=== PATIENT | male | born 1990 | race Caucasian/White ===

== ENCOUNTER → 2018-01-12 | Outpatient (REF) | payer OTHER ==
[2018-01-12 18:05] LABS: APPEARANCE, URINE CLEAR (CLEAR); BACTERIA, URINE AUTO NEGATIVE (NEGATIVE); BILIRUBIN, URINE AUTO NEGATIVE (NEGATIVE); BLOOD, URINE BLOOD 1+ (NEGATIVE); COLOR, URINE YELLOW (YELLOW); GLUCOSE, URINE (UA) AUTO NEGATIVE (NEGATIVE); KETONE, URINE AUTO NEGATIVE (NEGATIVE); LEUKOCYTE ESTERASE, URINE AUTO NEGATIVE (NEGATIVE); MUCUS, URINE SMALL (NEGATIVE); NITRITE, URINE AUTO NEGATIVE (NEGATIVE); PROTEIN, URINE AUTO NEGATIVE (NEGATIVE); RBC, URINE AUTO 6 /HPF (0-3); SPECIFIC GRAVITY URINE AUTO 1.015 (1.002-1.035); SQUAMOUS EPITHELIAL CELL UR AU 0 /HPF (0-6); UROBILINOGEN, URINE AUTO 0.2 mg/dL (0.0-2.0); WBC, URINE AUTO 2 /HPF (0-3)
== END ==
LOC: M SMT 17:15
DX: Z87.442 Personal history of urinary calculi (principal)

== ENCOUNTER → 2018-02-18 | Outpatient (REF) | payer OTHER ==
[2018-02-18 17:44] LABS: APPEARANCE, URINE CLEAR (CLEAR); BACTERIA, URINE AUTO NEGATIVE (NEGATIVE); BILIRUBIN, URINE AUTO NEGATIVE (NEGATIVE); BLOOD, URINE BLOOD NEGATIVE (NEGATIVE); COLOR, URINE YELLOW (YELLOW); GLUCOSE, URINE (UA) AUTO NEGATIVE (NEGATIVE); KETONE, URINE AUTO TRACE mg/dL (NEGATIVE); LEUKOCYTE ESTERASE, URINE AUTO NEGATIVE (NEGATIVE); MUCUS, URINE SMALL (NEGATIVE); NITRITE, URINE AUTO NEGATIVE (NEGATIVE); PROTEIN, URINE AUTO NEGATIVE (NEGATIVE); RBC, URINE AUTO 1 /HPF (0-3); SPECIFIC GRAVITY URINE AUTO 1.032 (1.002-1.035); SQUAMOUS EPITHELIAL CELL UR AU 0 /HPF (0-6); WBC, URINE AUTO 1 /HPF (0-3)
== END ==
LOC: M SMT 17:09
DX: N20.0 Calculus of kidney (principal)
CPT/HCPCS: 81001

== ENCOUNTER → 2018-08-24 | Outpatient (CLI) | payer OTHER | LOC: M PAIN 13:15 | DX: G89.29 Other chronic pain (principal); M25.511 Pain in right shoulder; M79.10 Myalgia, unspecified site; F41.9 Anxiety disorder, unspecified; K21.9 Gastro-esophageal reflux disease without esophagitis; K58.9 Irritable bowel syndrome, unspecified; Z87.891 Personal history of nicotine dependence; Z79.891 Long term (current) use of opiate analgesic; Z79.899 Other long term (current) drug therapy | CPT/HCPCS: G0463 ==

== ENCOUNTER → 2018-09-21 | Outpatient (CLI) | payer OTHER ==
[~2018-09-21] MED LIST: BUPIVACAINE HCL 0.25% 10 ML VIAL As Ordered; BUPIVACAINE HCL 0.25% 30 ML VIAL As Ordered; TRIAMCINOLONE ACETONIDE SUSP 40 MG/ML VIAL (J3301) As Ordered; oxyCODONE 5MG TAB As Ordered
== END ==
LOC: M PAIN 10:00
DX: G89.29 Other chronic pain (principal); M79.18 Myalgia, other site; M25.511 Pain in right shoulder; F41.9 Anxiety disorder, unspecified; Z79.899 Other long term (current) drug therapy; Z87.19 Personal history of other diseases of the digestive system; Z87.891 Personal history of nicotine dependence
CPT/HCPCS: J3301

== ENCOUNTER → 2018-10-20 | Outpatient (CLI) | payer OTHER ==
[~2018-10-20] MED LIST changes: -BUPIVACAINE HCL 0.25% 10 ML VIAL As Ordered; -BUPIVACAINE HCL 0.25% 30 ML VIAL As Ordered; +PERC5TAB12 PO; +SERT50TA PO; +TAMS0.4C2 PO; -TRIAMCINOLONE ACETONIDE SUSP 40 MG/ML VIAL (J3301) As Ordered; +ZOFR4TAB14 PO; -oxyCODONE 5MG TAB As Ordered
--- NOTE | 2018-11-12 00:41 | ECWPNPC ---
PATIENT NAME: MEDHAT BURRELL : 1990 GENDER: MALE VISIT DATE: 10/20/2018 DISCHARGE DATE: 10/20/18 1504 VISIT LOCKED DATE TIME: PHYSICIAN: CORRINE JACOBS RESOURCE: CORRINE JACOBS REASON FOR APPOINTMENT 1. POST PROC HISTORY OF PRESENT ILLNESS HISTORY OF PRESENT ILLNESS: HERE FOR POST PROCEDURE F/U.HAD TPI RIGHT SHOULDER 09-21-18.REPORTING >50% IMPROVEMENT SOME OF WHICH CONTINUES TODAY.RATING PAIN VAS 7/10.ATTENDING PT AND REPORTS IMPROVEMENT IN [facility] AND THEY WILL BE STARTING MUSCLE STRENGTHENING SOON.COMPLAINING OF NECK PAIN WITH RADIATION INTO RIGHT UPPER ARM.ALSO EXPERIENCING NUMBNESS IN HIS RIGHT FINGERS.THIS HAS BEEN AN ISSUE FOR SEVERAL MONTHS.DISCUSSED TREATMENT PLAN. PAIN THE PATIENT DESCRIBES THE PAIN... FALL RISK SCREENING: SCREENING :NO FALLS IN THE PAST YEAR CURRENT MEDICATIONS TAKING TRAMADOL HCL 50 MG TABLET 1 TABLET NEEDED ORALLY Q8H PRN MDD3 TAKING TYLENOL 325 MG TABLET 2TABLET NEEDED ORALLY EVERY 6 HRS NOT-TAKING ZOLOFT 50 MG TABLET 1 TABLET ORALLY ONCE A DAY, NOTES: NEEDS REFILL FROM PCP DISCONTINUED TRAMADOL HCL 50 MG TABLET 1 ORALLY Q8H PRN MDD3, NOTES: DUPLICATE DISCONTINUED FLOMAX 0.4 MG CAPSULE 1 CAPSULE ORALLY ONCE A DAY DISCONTINUED PERCOCET 5-325 MG TABLET 1 TABLET NEEDED ORALLY EVERY 6 HRS, MDD 4 DISCONTINUED FLOMAX 0.4 MG CAPSULE 1 CAPSULE 30 MINUTES AFTER THE SAME MEAL EACH DAY ORALLY ONCE A DAY DISCONTINUED ZOFRAN ODT 4 MG TABLET DISPERSIBLE 1 TABLET ON THE TONGUE AND ALLOW TO DISSOLVE ORALLY EVERY 8 HRS DISCONTINUED PERCOCET 5-325 MG TABLET 1 TABLET NEEDED ORALLY EVERY 6 HRS, MDD 4 DISCONTINUED POTASSIUM CITRATE-CITRIC ACID 1100-334 MG/5ML SOLUTION 15 ML AFTER MEALS ORALLY TID DISCONTINUED BUSPIRONE HCL 10 MG TABLET 1 TABLET ORALLY TWICE A DAY DISCONTINUED PROTONIX 40 MG TABLET DELAYED RELEASE 1 TABLET ORALLY ONCE A DAY MEDICATION LIST REVIEWED AND RECONCILED WITH THE PATIENT PAST MEDICAL HISTORY KIDNEY STONES HYDRONEPHROSIS ANXIETY PEPTIC REFLUX DISEASE IBS CHRONIC RIGHT SHOULDER PAIN ALLERGIES N.K.D.A. SURGICAL HISTORY RIGHT SHOULDER ARTHROPLASTY X2 2014/2016 RIGHT SHOULDER SURGERY 2012 FAMILY HISTORY FATHER: ALIVE MOTHER: ALIVE PATERNAL GRAND MOTHER: DIAGNOSED WITH CANCER 1 BROTHER(S) , 1 SISTER(S) - HEALTHY. 3 SON(S) - HEALTHY. DENIES FAMILY HISTORY OF UROLOGICAL DISEASES. SOCIAL HISTORY GENERAL: TOBACCO USE ARE YOU A:: FORMER SMOKER , HOW LONG HAS IT BEEN SINCE YOU LAST SMOKED?: 1-5 YEARS. ALCOHOL SCREENING POINTS: 3, INTERPRETATION: NEGATIVE. RECREATIONAL DRUG USE DENIES. CAFFEINE NONE. SEXUAL HX HAD SEX IN THE LAST 12 MONTHS (VAGINAL, ORAL, OR ANAL)?: YES, WITH: WOMEN ONLY, USE PROTECTION?: YES, HOW OFTEN?: ALL OF THE TIME, PREVENTION STRATEGIES DISCUSSED:: CONDOMS, HAVE YOU EVER HAD AN STD?: NO. YAZDANISM [id number] QUAKER LANGUAGE VIETNAMESE. EDUCATION COLLEGE DEGREE. 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 DIET: REGULAR. EXERCISE: WALKS. MARITAL STATUS: SINGLE. OTHERS AT HOME: OTHER RELATIVES. PAIN CLINIC PFS, CLERGY, PUBLIC HEALTH REFERRALS WAS THE PROVIDER NOTIFIED OF ANY PERTINENT INFO? N/A HAS THE PATIENT BEEN EDUCATED REGARDING HIS/HER PLAN OF CARE?YES HAS THE PATIENT BEEN EDUCATED REGARDING PAIN, THE RISK FOR PAIN, THE IMPORTANCE OF EFFECTIVE PAIN MANAGEMENT, AND THE PAIN ASSESSMENT PROCESS?YES ADVANCE DIRECTIVE ADVANCE DIRECTIVE DISCUSSED WITH PATIENT:YES 10/20/18 PT DOES NOT HAVE ANY ADVANCED DIRECTIVES AND HE DECLINES INFORMATION ON HCP AT THIS TIME. AD REVIEWED WITH PT 08/24/18 1334 BV10/20/18 1430 REVIEWED WITH PT. AD. HOSPITALIZATION/MAJOR DIAGNOSTIC PROCEDURE DENIES PAST HOSPITALIZATION REVIEW OF SYSTEMS REVIEWED BY: PROVIDER: CORRINE DAVALOS . CONSTITUTIONAL: ANY CHANGE IN YOUR MEDICAL CONDITION? NO . CHILLS NO . FEVER NO . INFECTION: DO YOU HAVE NEW INFECTIONS? NO . DO YOU HAVE HISTORY OF MRSA? NO . MUSCULOSKELETAL: ANY NEW PATTERNS OF PAIN OR NUMBNESS? NO . GASTROENTEROLOGY: ANY NEW CHANGE IN BOWEL CONTROL? NO . GENITOURINARY: ANY NEW CHANGE IN BLADDER CONTROL? NO . IS THERE A CHANCE YOU COULD BE ? NO . HEMATOLOGY/LYMPH: DO YOU TAKE ANY BLOOD THINNERS? (FOR EXAMPLE- COUMADIN, PLAVIX, AGGRENOX, PLATEL, PRADAXA, OR XARELTO) NO . WHEN WAS YOUR LAST DOSE? DATE: TIME: . NEUROLOGY: HAVE YOU FALLEN IN THE PAST 6 MONTHS? NO . ANY NEW EXTREMITY NUMBNESS OR WEAKNESS? NO . CARDIOLOGY: DO YOU HAVE A PACEMAKER OR DEFIBRILLATOR? NO . RESPIRATORY: HAVE YOU BEEN SICK IN THE PAST WEEK? NO . FEVER NO . FLU LIKE SYMPTOMS? NO . COUGH NO . INTEGUMENTARY: DO YOU HAVE ANY RASHES OR OPEN SORES? NO . ALLERGIC/IMMUNO: ARE YOU ALLERGIC TO SHELLFISH OR IV DYE? NO . ANY NEW ALLERGIES? NO . PSYCHIATRIC: DO YOU HAVE THOUGHTS OF HURTING YOURSELF OR SOMEONE ELSE? NO . ARE YOU ABUSED, NEGLECTED, OR IN AN UNSAFE ENVIRONMENT? NO . ENDOCRINOLOGY: ARE YOU DIABETIC? NO . OTHER: DO YOU NEED ANY PRESCRIPTIONS? NO . IF YES, PLEASE LIST: ____ . ANY NEW PROBLEMS WITH YOUR MEDICATIONS? NO . WHEN DID YOU LAST EAT? ____ . WHEN DID YOU LAST DRINK? ____ . WHAT DID YOU LAST DRINK? ____ . NAME OF PERSON DRIVING YOU HOME? ____ . DO YOU HAVE ANY OTHER QUESTIONS OR CONCERNS NO . VITAL SIGNS WT 168.2 LBS, HT 64.75", BMI 28.20 INDEX, BP 134/87 MM HG, HR 92 /MIN, RR 16 /MIN, TEMP 97.7 F, OXYGEN SAT % 98%, SAFE IN ENV? (Y/N) Y, NA INITIALS SC 14:18, REVIEWED BY: ANTONI. EXAMINATION GENERAL EXAMINATION: GENERAL APPEARANCE:ALERT,PLEASANT,NO ACUTE DISTRESS . PSYCHAFFECT NORMAL . NECK:TRACHEA MIDLINE. NO CERVICAL OR SUPRACLAVICULAR LYMPHADENOPATHY NOTED . LUNGS:LUNG SOUNDS ARE CLEAR . HEART:HEART RATE REGULAR . MUSCULOSKELETAL:ROJM RIGHT ARM LIMITED TO 90 DEGREES DUE TO INCREASED PAIN WITH ELEVATION ABOVE THIS POINT . CERVICALNEGATIVE FOR PAIN WITH PALPATION OF CERVICAL SPINE. NEGATIVE FOR PAIN WITH PALPATION OF CERVICAL PARASPINALS. NEGATIVE FOR PAIN WITH PALPATION OF TRAPEZIUS BILAT . NEUROLOGIC EXAM:NORMAL SENSATION LIGHT TOUCH BILAT.EXTREMITIES. SHOULDER / UPPER ARM: SHOULDER:RIGHT. INSPECTION:WELL HEALED SURGICAL SCARS.. PALPATION:NO TENDERNESS ON SUBDELTOID BURSA & BICIPITAL TENDON TRIGGER POINTS: OVER RIGHT TRAPEZIUS/RHOMBOID. ASSESSMENTS MYALGIA, OTHER SITE - M79.18 (PRIMARY) PAIN IN RIGHT SHOULDER - M25.511 (PRIMARY) CERVICALGIA - M54.2 TREATMENT MYALGIA, OTHER SITE BRANDIN SPINE CERVICAL [id number] NOTES: CONTINUE PTTPI RIGHT SHOULDER /UPPER BACK. PREVENTIVE MEDICINE PAIN CLINIC TEACHING: PROCEDURE TEACHING PT. DECLINED INFORAMTION ON TRIGGER POINT INJECTIONS STATING HE HAS HAD THEM AND IS FAMILIAR WITH IT. PRE-PROCEDURE INSTRUCTIONS REVIEWED WITH PT AND HE VERBALIZED UNDERSTANDING. AD. PROCEDURE CODES FA211 ESTABILISHED PATIENT [facility] FACILITY CHARGE DISPOSITION & COMMUNICATION FOLLOW UP POST (REASON: TPI RIGHT SHOULDER /UPPER BACK) ELECTRONICALLY SIGNED BY ANOOP STEINBERG ON 11/11/2018 AT 02:28 PM EST DISCLAIMER : THIS IS A VISIT SUMMARY EXTRACTED FROM THE [employer] CHART. IT IS NOT A COPY OF THE [employer] PROGRESS NOTE. AUGUSTINE
== END ==
LOC: M PAIN 14:15
PROVIDERS: ATTEND Nurse Practitioner Family
DX: M79.18 Myalgia, other site (principal); M25.511 Pain in right shoulder; M54.2 Cervicalgia; F41.9 Anxiety disorder, unspecified; Z79.899 Other long term (current) drug therapy; Z87.19 Personal history of other diseases of the digestive system; Z87.891 Personal history of nicotine dependence

== ENCOUNTER → 2018-10-20 | Outpatient (CLI) | payer OTHER | LOC: M RAD 16:12 | DX: M79.18 Myalgia, other site (principal) | CPT/HCPCS: 72052 ==

== ENCOUNTER → 2018-11-22 | Outpatient (CLI) | payer OTHER ==
[~2018-11-22] MED LIST changes: +BUPIVACAINE HCL 0.25% 10 ML VIAL As Ordered ONE; +BUPIVACAINE HCL 0.25% 30 ML VIAL As Ordered ONE; +TRIAMCINOLONE ACETONIDE SUSP 40 MG/ML VIAL (J3301) As Ordered ONE; +oxyCODONE 5MG TAB As Ordered ONE
--- NOTE | 2018-12-06 01:43 | ECWPNPC ---
PATIENT NAME: MEDHAT BURRELL : 1990 GENDER: MALE VISIT DATE: 11/22/2018 DISCHARGE DATE: 11/22/18 1003 VISIT LOCKED DATE TIME: PHYSICIAN: KEIKO RUIZ MD RESOURCE: KEIKO RUIZ MD REASON FOR APPOINTMENT 1. TPI HISTORY OF PRESENT ILLNESS HISTORY OF PRESENT ILLNESS: PAIN THE PATIENT DESCRIBES THE PAIN... FALL RISK SCREENING: SCREENING :NO FALLS IN THE PAST YEAR CURRENT MEDICATIONS TAKING TYLENOL 325 MG TABLET 2TABLET NEEDED ORALLY EVERY 6 HRS, NOTES: NONE RECENT TAKING TRAMADOL HCL 50 MG TABLET 1 TABLET NEEDED ORALLY Q8H PRN MDD3, NOTES: 11/21 1500 DISCONTINUED ZOLOFT 50 MG TABLET 1 TABLET ORALLY ONCE A DAY, NOTES: NEEDS REFILL FROM PCP MEDICATION LIST REVIEWED AND RECONCILED WITH THE PATIENT PAST MEDICAL HISTORY KIDNEY STONES HYDRONEPHROSIS ANXIETY PEPTIC REFLUX DISEASE IBS CHRONIC RIGHT SHOULDER PAIN ALLERGIES N.K.D.A. SURGICAL HISTORY RIGHT SHOULDER ARTHROPLASTY X2 RIGHT SHOULDER SURGERY 2011 FAMILY HISTORY FATHER: ALIVE MOTHER: ALIVE PATERNAL GRAND MOTHER: DIAGNOSED WITH CANCER 1 BROTHER(S) , 1 SISTER(S) - HEALTHY. 3 SON(S) - HEALTHY. DENIES FAMILY HISTORY OF UROLOGICAL DISEASES. SOCIAL HISTORY GENERAL: TOBACCO USE ARE YOU A:: FORMER SMOKER , HOW LONG HAS IT BEEN SINCE YOU LAST SMOKED?: 1-5 YEARS. ALCOHOL SCREENING POINTS: 3, INTERPRETATION: NEGATIVE. RECREATIONAL DRUG USE DENIES. CAFFEINE NONE. SEXUAL HX HAD SEX IN THE LAST 12 MONTHS (VAGINAL, ORAL, OR ANAL)?: YES, WITH: WOMEN ONLY, USE PROTECTION?: YES, HOW OFTEN?: ALL OF THE TIME, PREVENTION STRATEGIES DISCUSSED:: CONDOMS, HAVE YOU EVER HAD AN STD?: NO. ZOROASTRIANISM [id number] BUDDHIST LANGUAGE TURKMEN. EDUCATION COLLEGE DEGREE. 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 DIET: REGULAR. EXERCISE: WALKS. MARITAL STATUS: SINGLE. OTHERS AT HOME: OTHER RELATIVES. PAIN CLINIC PFS, CLERGY, PUBLIC HEALTH REFERRALS WAS THE PROVIDER NOTIFIED OF ANY PERTINENT INFO? N/A HAS THE PATIENT BEEN EDUCATED REGARDING HIS/HER PLAN OF CARE?YES HAS THE PATIENT BEEN EDUCATED REGARDING PAIN, THE RISK FOR PAIN, THE IMPORTANCE OF EFFECTIVE PAIN MANAGEMENT, AND THE PAIN ASSESSMENT PROCESS?YES ADVANCE DIRECTIVE ADVANCE DIRECTIVE DISCUSSED WITH PATIENT:YES 11/22/18 PT DOES NOT HAVE ANY ADVANCED DIRECTIVES AND HE DECLINES INFORMATION ON HCP AT THIS TIME. AD REVIEWED WITH PT 08/24/18 1334 BV10/20/18 1430 REVIEWED WITH PT. AD11/22/18 0905 REVIEWED WITH PT. AD. HOSPITALIZATION/MAJOR DIAGNOSTIC PROCEDURE DENIES PAST HOSPITALIZATION REVIEW OF SYSTEMS REVIEWED BY: PROVIDER: . CONSTITUTIONAL: ANY CHANGE IN YOUR MEDICAL CONDITION? NO . CHILLS NO . FEVER NO . INFECTION: DO YOU HAVE NEW INFECTIONS? NO . DO YOU HAVE HISTORY OF MRSA? NO . MUSCULOSKELETAL: ANY NEW PATTERNS OF PAIN OR NUMBNESS? NO . GASTROENTEROLOGY: ANY NEW CHANGE IN BOWEL CONTROL? NO . GENITOURINARY: ANY NEW CHANGE IN BLADDER CONTROL? NO . IS THERE A CHANCE YOU COULD BE ? NO . HEMATOLOGY/LYMPH: DO YOU TAKE ANY BLOOD THINNERS? (FOR EXAMPLE- COUMADIN, PLAVIX, AGGRENOX, PLATEL, PRADAXA, OR XARELTO) NO . WHEN WAS YOUR LAST DOSE? DATE: TIME: . NEUROLOGY: HAVE YOU FALLEN IN THE PAST 6 MONTHS? NO . ANY NEW EXTREMITY NUMBNESS OR WEAKNESS? NO . CARDIOLOGY: DO YOU HAVE A PACEMAKER OR DEFIBRILLATOR? NO . RESPIRATORY: HAVE YOU BEEN SICK IN THE PAST WEEK? NO . FEVER NO . FLU LIKE SYMPTOMS? NO . COUGH NO . INTEGUMENTARY: DO YOU HAVE ANY RASHES OR OPEN SORES? NO . ALLERGIC/IMMUNO: ARE YOU ALLERGIC TO SHELLFISH OR IV DYE? NO . ANY NEW ALLERGIES? NO . PSYCHIATRIC: DO YOU HAVE THOUGHTS OF HURTING YOURSELF OR SOMEONE ELSE? NO . ARE YOU ABUSED, NEGLECTED, OR IN AN UNSAFE ENVIRONMENT? NO . ENDOCRINOLOGY: ARE YOU DIABETIC? NO . OTHER: DO YOU NEED ANY PRESCRIPTIONS? NO . IF YES, PLEASE LIST: ____ . ANY NEW PROBLEMS WITH YOUR MEDICATIONS? NO . WHEN DID YOU LAST EAT? 11/21 1829 . WHEN DID YOU LAST DRINK? 11/21 1999 . WHAT DID YOU LAST DRINK? WATER . NAME OF PERSON DRIVING YOU HOME? JOSE JUAN HUBER . DO YOU HAVE ANY OTHER QUESTIONS OR CONCERNS NO . VITAL SIGNS WT 168.2 LBS, HT 64.75", BMI 28.20 INDEX, BP 124/72 MM HG, HR 72 /MIN, RR 18 /MIN, TEMP 97.4 F, OXYGEN SAT % 97, NA INITIALS MP 0848. ASSESSMENTS MYALGIA, OTHER SITE - M79.18 (PRIMARY) PROCEDURES PN TRIGGER POINT INJECTION WITH STEROIDS PRE PROCEDURE DIAGNOSIS 1. MYALGIA 2. PAIN AT RIGHT SHOULDER AREA POST PROCEDURE DIAGNOSIS 1. MYALGIA 2. PAIN AT RIGHT SHOULDER AREA PROCEDURE TRIGGER POINT INJECTION AT RIGHT SHOULDER AREA SURGEON DR. KEIKO RUIZ ENVIRONMENTAL TECH NONE ANESTHESIA LOCAL PRE PROCEDURE NOTE THE PATIENT HAS A HISTORY OF CHRONIC PAIN AT THE RIGHT SHOULDER AREA. I EVALUATE THE PATIENT AND REVIEWED THE CHART. THERE IS EVIDENCE OF BANDS OF TISSUE WITH RESTRICTION OF MOVEMENT AND PRESENCE OF TRIGGER POINT AT THE AFFECTED AREA. I WENT OVER THE RISKS, ALTERNATIVES, AND BENEFITS ASSOCIATED WITH THIS PROCEDURE. THE PATIENT WOULD LIKE TO PROCEED AND GIVE CONSENT TO PERFORMED THE PROCEDURE. THE PATIENT DENIES UNEXPLAINABLE WEIGHT LOSS, FEVER, CHILLS, OR NEW CHANGES IN URINARY OR BOWEL CONTROL DESCRIPTION OF PROCEDURE THE PATIENT WAS BROUGHT TO THE PROCEDURE ROOM AND PLACED IN THE SITTING POSITION. THE AREA WAS CLEANED WITH ALCOHOL. THE PROCEDURE WAS DONE USING ASEPTIC STERILE TECHNIQUE. I CHECKED LATERALITY AND THE LEVEL WHERE THE PROCEDURE WAS GOING TO BE PERFORMED WITH THE PATIENT AND THE SUPPORTING STAFF AT THE MOMENT OF THE TIME OUT IN THE PROCEDURE ROOM. USING A 25-GAUGE NEEDLE, TRIGGER POINTS WERE INJECTED AT THE RIGHT SHOULDER AREA WITH A TOTAL OF 40 ML OF BUPIVACAINE 0.25% AND KENALOG 40 MG. THERE WAS NO EVIDENCE OF BLOOD, PARESTHESIA OR CEREBROSPINAL FLUID DURING THE PROCEDURE. THE PATIENT WAS SENT TO THE RECOVERY ROOM. THE PATIENT WAS MOVING THE EXTREMITIES AND DOING WELL. THERE WAS NO COMPLICATION DURING THE PROCEDURE POST PROCEDURE NOTE THE PATIENT WILL BE SEEN IN A FOLLOW UP IN THE NEXT FEW WEEKS. INSTRUCTIONS WERE GIVEN, QUESTIONS WERE ANSWERED, AND THE PATIENT EXPRESSED UNDERSTANDING AND AGREES WITH THE PLAN. I, WILLOW SINGH, DOCUMENTED THE ABOVE INFORMATION ACTING A SCRIBE FOR DR. RUIZ. I HAVE REVIEWED THE ABOVE DOCUMENT, WRITTEN BY WILLOW PATEL AND I VERIFY THAT IT IS ACCURATE. PROCEDURE CODES 42653 INJ TRIGGER POINT 11/09 [facility] [place] COMMUNICATION FOLLOW UP 3 WEEKS ELECTRONICALLY SIGNED BY KEIKO RUIZ MD, MD ON 12/05/2018 AT 11:53 AM EST DISCLAIMER : THIS IS A VISIT SUMMARY EXTRACTED FROM THE [employer] CHART. IT IS NOT A COPY OF THE [employer] PROGRESS NOTE. AUGUSTINE
== END ==
LOC: M PAIN 08:30
PROVIDERS: ATTEND Anesthesiology
DX: M79.18 Myalgia, other site (principal); F41.9 Anxiety disorder, unspecified; K25.9 Gastric ulcer, unspecified as acute or chronic, without hemorrhage or perforation; K58.9 Irritable bowel syndrome, unspecified; M25.111 Fistula, right shoulder; Z87.442 Personal history of urinary calculi; Z87.891 Personal history of nicotine dependence; Z79.899 Other long term (current) drug therapy
CPT/HCPCS: 20552; J3301

== ENCOUNTER → 2018-12-29 | Outpatient (CLI) | payer OTHER ==
[~2018-12-29] MED LIST changes: -BUPIVACAINE HCL 0.25% 10 ML VIAL As Ordered ONE; -BUPIVACAINE HCL 0.25% 30 ML VIAL As Ordered ONE; -TRIAMCINOLONE ACETONIDE SUSP 40 MG/ML VIAL (J3301) As Ordered ONE; -oxyCODONE 5MG TAB As Ordered ONE
--- NOTE | 2019-01-14 23:37 | ECWPNPC ---
PATIENT NAME: MEDHAT BURRELL : 1990 GENDER: MALE VISIT DATE: 12/29/2018 DISCHARGE DATE: 12/29/18 0917 VISIT LOCKED DATE TIME: PHYSICIAN: CORRINE JACOBS RESOURCE: CORRINE JACOBS REASON FOR APPOINTMENT 1. POST TPI HISTORY OF PRESENT ILLNESS HISTORY OF PRESENT ILLNESS: HERE FOR POST PROCEDURE F/U.HAD TPI RIGHT SHOULDER 11-22-18.REPORTING >50% X1 WEEK.RATING PAIN VAS 7/10.ATTENDED PT RECENTLY AND DOING HOME STRETCHING. AND REPORTS IMPROVEMENT IN [facility].COMPLAINING OF NECK PAIN WITH RADIATION INTO RIGHT UPPER ARM.ALSO EXPERIENCING NUMBNESS IN HIS RIGHT FINGERS.HAS HAD STEROID INJECTIONS INTO SHOULDER JOINT ON SEVERAL OCCASIONS WHICH DIDNT HELP AND AGGREVATED PAINTHIS HAS BEEN AN ISSUE FOR SEVERAL MONTHS.DISCUSSED TREATMENT PLAN. PAIN THE PATIENT DESCRIBES THE PAIN... THE PATIENT DESCRIBES THE PAIN... FALL RISK SCREENING: SCREENING : NO FALLS IN THE PAST YEAR. CURRENT MEDICATIONS TAKING TYLENOL 325 MG TABLET 2TABLET NEEDED ORALLY EVERY 6 HRS TAKING TRAMADOL HCL 50 MG TABLET 1 TABLET NEEDED ORALLY Q8H PRN MDD3 MEDICATION LIST REVIEWED AND RECONCILED WITH THE PATIENT PAST MEDICAL HISTORY KIDNEY STONES HYDRONEPHROSIS ANXIETY PEPTIC REFLUX DISEASE IBS CHRONIC RIGHT SHOULDER PAIN ALLERGIES N.K.D.A. SURGICAL HISTORY RIGHT SHOULDER ARTHROPLASTY X2 2014/2015 RIGHT SHOULDER SURGERY 2012 FAMILY HISTORY FATHER: ALIVE MOTHER: ALIVE PATERNAL GRAND MOTHER: DIAGNOSED WITH CANCER 1 BROTHER(S) , 1 SISTER(S) - HEALTHY. 3 SON(S) - HEALTHY. DENIES FAMILY HISTORY OF UROLOGICAL DISEASES. SOCIAL HISTORY GENERAL: TOBACCO USE ARE YOU A:FORMER SMOKER HOW LONG HAS IT BEEN SINCE YOU LAST SMOKED?5-10 YEARS ALCOHOL SCREENING POINTS: 3, INTERPRETATION: NEGATIVE. RECREATIONAL DRUG USE DENIES. CAFFEINE NONE. SEXUAL HX HAD SEX IN THE LAST 12 MONTHS (VAGINAL, ORAL, OR ANAL)?: YES, WITH: WOMEN ONLY, USE PROTECTION?: YES, HOW OFTEN?: ALL OF THE TIME, PREVENTION STRATEGIES DISCUSSED:: CONDOMS, HAVE YOU EVER HAD AN STD?: NO. HOLINESS [id number] SYNAGOGUE LANGUAGE UZBEK. EDUCATION COLLEGE DEGREE. 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 DIET: REGULAR. EXERCISE: WALKS. MARITAL STATUS: SINGLE. OTHERS AT HOME: OTHER RELATIVES. PAIN CLINIC PFS, CLERGY, PUBLIC HEALTH REFERRALS WAS THE PROVIDER NOTIFIED OF ANY PERTINENT INFO? N/A HAS THE PATIENT BEEN EDUCATED REGARDING HIS/HER PLAN OF CARE?YES HAS THE PATIENT BEEN EDUCATED REGARDING PAIN, THE RISK FOR PAIN, THE IMPORTANCE OF EFFECTIVE PAIN MANAGEMENT, AND THE PAIN ASSESSMENT PROCESS?YES ADVANCE DIRECTIVE ADVANCE DIRECTIVE DISCUSSED WITH PATIENT:YES PT DOES NOT HAVE ANY ADVANCED DIRECTIVES AND HE DECLINES INFORMATION ON HCP AT THIS TIME. REVIEWED WITH PT 08/24/18 1334 BV10/20/18 1430 REVIEWED WITH PT. AD11/22/18 0905 REVIEWED WITH PT. AD. HOSPITALIZATION/MAJOR DIAGNOSTIC PROCEDURE NONE OTHER THAN SURGERIES LISTED ABOVE REVIEW OF SYSTEMS REVIEWED BY: PROVIDER: CORRINE DAVALOS . CONSTITUTIONAL: ANY CHANGE IN YOUR MEDICAL CONDITION? NO . CHILLS NO . FEVER NO . INFECTION: DO YOU HAVE NEW INFECTIONS? NO . DO YOU HAVE HISTORY OF MRSA? NO . MUSCULOSKELETAL: ANY NEW PATTERNS OF PAIN OR NUMBNESS? NO . GASTROENTEROLOGY: ANY NEW CHANGE IN BOWEL CONTROL? NO . GENITOURINARY: ANY NEW CHANGE IN BLADDER CONTROL? NO . IS THERE A CHANCE YOU COULD BE ? NO . HEMATOLOGY/LYMPH: DO YOU TAKE ANY BLOOD THINNERS? (FOR EXAMPLE- COUMADIN, PLAVIX, AGGRENOX, PLATEL, PRADAXA, OR XARELTO) NO . WHEN WAS YOUR LAST DOSE? DATE: TIME: . NEUROLOGY: HAVE YOU FALLEN IN THE PAST 12 MONTHS? NO . ANY NEW EXTREMITY NUMBNESS OR WEAKNESS? NO . CARDIOLOGY: DO YOU HAVE A PACEMAKER OR DEFIBRILLATOR? NO . RESPIRATORY: HAVE YOU BEEN SICK IN THE PAST WEEK? NO . FEVER NO . FLU LIKE SYMPTOMS? NO . COUGH NO . INTEGUMENTARY: DO YOU HAVE ANY RASHES OR OPEN SORES? NO . ALLERGIC/IMMUNO: ARE YOU ALLERGIC TO IV DYE? NO . ANY NEW ALLERGIES? NO . PSYCHIATRIC: DO YOU HAVE THOUGHTS OF HURTING YOURSELF OR SOMEONE ELSE? NO . ARE YOU ABUSED, NEGLECTED, OR IN AN UNSAFE ENVIRONMENT? NO . ENDOCRINOLOGY: ARE YOU DIABETIC? NO . OTHER: DO YOU NEED ANY PRESCRIPTIONS? NO . IF YES, PLEASE LIST: ____ . ANY NEW PROBLEMS WITH YOUR MEDICATIONS? NO . WHEN DID YOU LAST EAT? ____ . WHEN DID YOU LAST DRINK? ____ . WHAT DID YOU LAST DRINK? ____ . NAME OF PERSON DRIVING YOU HOME? ____ . DO YOU HAVE ANY OTHER QUESTIONS OR CONCERNS NO . VITAL SIGNS WT 156.4 LBS, HT 64.75", BMI 26.22 INDEX, BP 113/71 MM HG, HR 92 /MIN, RR 16 /MIN, TEMP 98.0 F, OXYGEN SAT % 96%, NA INITIALS SC 08:37, REVIEWED BY: EM. EXAMINATION GENERAL EXAMINATION: GENERAL APPEARANCE:ALERT,PLEASANT,NO ACUTE DISTRESS . PSYCHAFFECT NORMAL . NECK:TRACHEA MIDLINE. NO CERVICAL OR SUPRACLAVICULAR LYMPHADENOPATHY NOTED . LUNGS:LUNG SOUNDS ARE CLEAR . HEART:HEART RATE REGULAR . MUSCULOSKELETAL:ROJM RIGHT ARM LIMITED TO 90 DEGREES DUE TO INCREASED PAIN WITH ELEVATION ABOVE THIS POINT . CERVICALNEGATIVE FOR PAIN WITH PALPATION OF CERVICAL SPINE. NEGATIVE FOR PAIN WITH PALPATION OF CERVICAL PARASPINALS. NEGATIVE FOR PAIN WITH PALPATION OF TRAPEZIUS BILAT . NEUROLOGIC EXAM:NORMAL SENSATION LIGHT TOUCH BILAT.EXTREMITIES. SHOULDER / UPPER ARM: SHOULDER:RIGHT. INSPECTION:WELL HEALED SURGICAL SCARS.. PALPATION:NO TENDERNESS ON SUBDELTOID BURSA & BICIPITAL TENDON TRIGGER POINTS: OVER RIGHT TRAPEZIUS/RHOMBOID. ASSESSMENTS MYALGIA, OTHER SITE - M79.18 (PRIMARY) PAIN IN RIGHT SHOULDER - M25.511 (PRIMARY) CERVICALGIA - M54.2 TREATMENT OTHERS CONTINUE TRAMADOL HCL TABLET, 50 MG, 1 TABLET NEEDED, ORALLY, Q8H PRN MDD3 START TIZANIDINE HCL TABLET, 2 MG, 1 TABLET NEEDED, ORALLY, THREE TIMES A DAY, 30 DAY(S), 45, REFILLS 1 NOTES: TPI RIGHT SHOULDER12/29/18 TRIGGER POINT INFORMATION REVIEWED WITH PTTIZANTIDINE INFORMATION GIVEN TO PTMayelin ALFARO PREVENTIVE MEDICINE T. PROCEDURE CODES FA211 ESTABILISHED PATIENT [facility] CHARGE DISPOSITION & COMMUNICATION FOLLOW UP POST (REASON: TPI RIGHT SHOULDER) ELECTRONICALLY SIGNED BY ANOOP STEINBERG ON 01/13/2019 AT 12:21 PM EST DISCLAIMER : THIS IS A VISIT SUMMARY EXTRACTED FROM THE [employer] [facility] CHART. IT IS NOT A COPY OF THE [facility] PROGRESS NOTE. MTDD
== END ==
LOC: M PAIN 08:45
PROVIDERS: ATTEND Nurse Practitioner Family
DX: M79.18 Myalgia, other site (principal); M25.511 Pain in right shoulder; M54.2 Cervicalgia; F41.9 Anxiety disorder, unspecified; Z79.899 Other long term (current) drug therapy; Z87.11 Personal history of peptic ulcer disease; Z87.891 Personal history of nicotine dependence

== ENCOUNTER → 2019-01-19 | Outpatient (CLI) | payer OTHER ==
[~2019-01-19] MED LIST changes: +BUPIVACAINE HCL 0.25% 10 ML VIAL As Ordered ONE; +BUPIVACAINE HCL 0.25% 30 ML VIAL As Ordered ONE; +TRIAMCINOLONE ACETONIDE SUSP 40 MG/ML VIAL (J3301) As Ordered ONE; +oxyCODONE 5MG TAB As Ordered ONE
--- NOTE | 2019-02-01 00:34 | ECWPNPC ---
PATIENT NAME: MEDHAT BURRELL : 1990 GENDER: MALE VISIT DATE: 01/19/2019 DISCHARGE DATE: 01/19/19925 VISIT LOCKED DATE TIME: PHYSICIAN: KEIKO RUIZ MD RESOURCE: KEIKO RUIZ MD REASON FOR APPOINTMENT 1. TPI RIGHT SHOULDER HISTORY OF PRESENT ILLNESS HISTORY OF PRESENT ILLNESS: PAIN THE PATIENT DESCRIBES THE PAIN... FALL RISK SCREENING: SCREENING : NO FALLS IN THE PAST YEAR. CURRENT MEDICATIONS TAKING TYLENOL 325 MG TABLET 2TABLET NEEDED ORALLY EVERY 6 HRS, NOTES: 1 WEEK AGO TAKING TRAMADOL HCL 50 MG TABLET 1 TABLET NEEDED ORALLY Q8H PRN MDD3, NOTES: 3 DAYS TAKING TIZANIDINE HCL 2 MG TABLET 1 TABLET NEEDED ORALLY THREE TIMES A DAY, NOTES: 2 DAYS AGO MEDICATION LIST REVIEWED AND RECONCILED WITH THE PATIENT PAST MEDICAL HISTORY KIDNEY STONES HYDRONEPHROSIS ANXIETY PEPTIC REFLUX DISEASE IBS CHRONIC RIGHT SHOULDER PAIN ALLERGIES N.K.D.A. SURGICAL HISTORY RIGHT SHOULDER ARTHROPLASTY X2 RIGHT SHOULDER SURGERY 2011 FAMILY HISTORY FATHER: ALIVE MOTHER: ALIVE PATERNAL GRAND MOTHER: DIAGNOSED WITH CANCER 1 BROTHER(S) , 1 SISTER(S) - HEALTHY. 3 SON(S) - HEALTHY. DENIES FAMILY HISTORY OF UROLOGICAL DISEASES. SOCIAL HISTORY GENERAL: TOBACCO USE ARE YOU A:FORMER SMOKER HOW LONG HAS IT BEEN SINCE YOU LAST SMOKED?5-10 YEARS LATEX QUESTIONNAIRE LATEX ALLERGY : HAVE YOU EVER DEVELOPED ANY TYPE OF REACTION AFTER HANDLING LATEX PRODUCTS SUCH RUBBER GLOVES, CONDOMS, DIAPHRAGMS, BALLOONS, SOCKS, OR UNDERWEAR?NO LATEX ALLERGY : HAVE YOU EVER DEVELOPED ANY TYPE OF REACTION DURING OR AFTER DENTAL APPOINTMENT, VAGINAL/RECTAL EXAMINATION, SURGICAL PROCEDURE, OR ANY OTHER EXPOSURE?NO LATEX RISK : HAVE YOU EVER HAD ANY DIFFICULTY BREATHING OR HIVES AFTER EATING OR HANDLING ANY FRUITS, OR VEGETABLES; SUCH KIWI, BANANAS, STONE FRUITS, OR CHESTNUTSNO LATEX RISK : DO YOU HAVE A PREVIOUS PERSONAL HISTORY OF MORE THAN NINE SURGERIES, SPINA BIFIDA, OR REPEATED CATHERTIZATIONS? NO LATEX RISK : ARE YOU FREQUENTLY EXPOSED TO LATEX PRODUCTS IN YOUR OCCUPATION?NO DATE ASKED : 01/19/2019 ALCOHOL SCREENING POINTS: 3, INTERPRETATION: NEGATIVE. RECREATIONAL DRUG USE DENIES. CAFFEINE NONE. SEXUAL HX HAD SEX IN THE LAST 12 MONTHS (VAGINAL, ORAL, OR ANAL)?: YES, WITH: WOMEN ONLY, USE PROTECTION?: YES, HOW OFTEN?: ALL OF THE TIME, PREVENTION STRATEGIES DISCUSSED:: CONDOMS, HAVE YOU EVER HAD AN STD?: NO. MORAVIAN [id number] RELIGION LANGUAGE [place]. EDUCATION COLLEGE DEGREE. 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 DIET: REGULAR. EXERCISE: WALKS. MARITAL STATUS: SINGLE. OTHERS AT HOME: OTHER RELATIVES. PAIN CLINIC PFS, CLERGY, PUBLIC HEALTH REFERRALS WAS THE PROVIDER NOTIFIED OF ANY PERTINENT INFO? N/A HAS THE PATIENT BEEN EDUCATED REGARDING HIS/HER PLAN OF CARE?YES HAS THE PATIENT BEEN EDUCATED REGARDING PAIN, THE RISK FOR PAIN, THE IMPORTANCE OF EFFECTIVE PAIN MANAGEMENT, AND THE PAIN ASSESSMENT PROCESS?YES ADVANCE DIRECTIVE ADVANCE DIRECTIVE DISCUSSED WITH PATIENT:YES PT DOES NOT HAVE ANY ADVANCED DIRECTIVES AND HE DECLINES INFORMATION ON HCP AT THIS TIME. REVIEWED WITH PT 08/24/18 1334 BV10/20/18 1430 REVIEWED WITH PT. AD11/22/18 0905 REVIEWED WITH PT. AD. HOSPITALIZATION/MAJOR DIAGNOSTIC PROCEDURE NONE OTHER THAN SURGERIES LISTED ABOVE REVIEW OF SYSTEMS REVIEWED BY: PROVIDER: . CONSTITUTIONAL: ANY CHANGE IN YOUR MEDICAL CONDITION? NO . CHILLS NO . FEVER NO . INFECTION: DO YOU HAVE NEW INFECTIONS? NO . DO YOU HAVE HISTORY OF MRSA? NO . MUSCULOSKELETAL: ANY NEW PATTERNS OF PAIN OR NUMBNESS? NO . GASTROENTEROLOGY: ANY NEW CHANGE IN BOWEL CONTROL? NO . GENITOURINARY: ANY NEW CHANGE IN BLADDER CONTROL? NO . IS THERE A CHANCE YOU COULD BE ? NO . HEMATOLOGY/LYMPH: DO YOU TAKE ANY BLOOD THINNERS? (FOR EXAMPLE- COUMADIN, PLAVIX, AGGRENOX, PLATEL, PRADAXA, OR XARELTO) NO . WHEN WAS YOUR LAST DOSE? DATE: TIME: . NEUROLOGY: HAVE YOU FALLEN IN THE PAST 12 MONTHS? NO . ANY NEW EXTREMITY NUMBNESS OR WEAKNESS? NO . CARDIOLOGY: DO YOU HAVE A PACEMAKER OR DEFIBRILLATOR? NO . RESPIRATORY: HAVE YOU BEEN SICK IN THE PAST WEEK? NO . FEVER NO . FLU LIKE SYMPTOMS? NO . COUGH NO . INTEGUMENTARY: DO YOU HAVE ANY RASHES OR OPEN SORES? NO . ALLERGIC/IMMUNO: ARE YOU ALLERGIC TO IV DYE? NO . ANY NEW ALLERGIES? NO . PSYCHIATRIC: DO YOU HAVE THOUGHTS OF HURTING YOURSELF OR SOMEONE ELSE? NO . ARE YOU ABUSED, NEGLECTED, OR IN AN UNSAFE ENVIRONMENT? NO . ENDOCRINOLOGY: ARE YOU DIABETIC? NO . OTHER: DO YOU NEED ANY PRESCRIPTIONS? NO . IF YES, PLEASE LIST: ____ . ANY NEW PROBLEMS WITH YOUR MEDICATIONS? NO . WHEN DID YOU LAST EAT? 01/18 7PM . WHEN DID YOU LAST DRINK? 01/18 9PM . WHAT DID YOU LAST DRINK? WATER . NAME OF PERSON DRIVING YOU HOME? BETSEY BURRELL . DO YOU HAVE ANY OTHER QUESTIONS OR CONCERNS NO . VITAL SIGNS WT 158.6 LBS, HT 64.75", BMI 26.59 INDEX, BP 111/73 MM HG, HR 74 /MIN, RR 16 /MIN, TEMP 97.1 F, OXYGEN SAT % 98%, SAFE IN ENV? (Y/N) Y, NA INITIALS IL 08:51, REVIEWED BY: MARIJA. ASSESSMENTS MYALGIA, OTHER SITE - M79.18 (PRIMARY) PROCEDURES PN TRIGGER POINT INJECTION WITH STEROIDS PRE PROCEDURE DIAGNOSIS 1. MYALGIA 2. PAIN AT RIGHT SHOULDER AREA POST PROCEDURE DIAGNOSIS 1. MYALGIA 2. PAIN AT RIGHT SHOULDER AREA PROCEDURE TRIGGER POINT INJECTION AT RIGHT SHOULDER AREA SURGEON DR. KEIKO RUIZ BICYCLE MECHANIC NONE ANESTHESIA LOCAL PRE PROCEDURE NOTE THE PATIENT HAS A HISTORY OF CHRONIC PAIN AT THE RIGHT SHOULDER AREA. I EVALUATE THE PATIENT AND REVIEWED THE CHART. THERE IS EVIDENCE OF BANDS OF TISSUE WITH RESTRICTION OF MOVEMENT AND PRESENCE OF TRIGGER POINT AT THE AFFECTED AREA. I WENT OVER THE RISKS, ALTERNATIVES, AND BENEFITS ASSOCIATED WITH THIS PROCEDURE. THE PATIENT WOULD LIKE TO PROCEED AND GIVE CONSENT TO PERFORMED THE PROCEDURE. THE PATIENT DENIES UNEXPLAINABLE WEIGHT LOSS, FEVER, CHILLS, OR NEW CHANGES IN URINARY OR BOWEL CONTROL DESCRIPTION OF PROCEDURE THE PATIENT WAS BROUGHT TO THE PROCEDURE ROOM AND PLACED IN THE SITTING POSITION. THE AREA WAS CLEANED WITH ALCOHOL. THE PROCEDURE WAS DONE USING ASEPTIC STERILE TECHNIQUE. I CHECKED LATERALITY AND THE LEVEL WHERE THE PROCEDURE WAS GOING TO BE PERFORMED WITH THE PATIENT AND THE SUPPORTING STAFF AT THE MOMENT OF THE TIME OUT IN THE PROCEDURE ROOM. USING A 25-GAUGE NEEDLE, TRIGGER POINTS WERE INJECTED AT THE RIGHT SHOULDER AREA WITH A TOTAL OF 40 ML OF BUPIVACAINE 0.25% AND KENALOG 40 MG. THERE WAS NO EVIDENCE OF BLOOD, PARESTHESIA OR CEREBROSPINAL FLUID DURING THE PROCEDURE. THE PATIENT WAS SENT TO THE RECOVERY ROOM. THE PATIENT WAS MOVING THE EXTREMITIES AND DOING WELL. THERE WAS NO COMPLICATION DURING THE PROCEDURE POST PROCEDURE NOTE THE PATIENT WILL BE SEEN IN A FOLLOW UP IN THE NEXT FEW WEEKS. INSTRUCTIONS WERE GIVEN, QUESTIONS WERE ANSWERED, AND THE PATIENT EXPRESSED UNDERSTANDING AND AGREES WITH THE PLAN. I, WILLOW SINGH, DOCUMENTED THE ABOVE INFORMATION ACTING A SCRIBE FOR DR. RUIZ. I HAVE REVIEWED THE ABOVE DOCUMENT, WRITTEN BY WILLOW PATEL AND I VERIFY THAT IT IS ACCURATE. PROCEDURE CODES 51110 INJ TRIGGER POINT / MUSC DISPOSITION & COMMUNICATION FOLLOW UP 3 WEEKS ELECTRONICALLY SIGNED BY KEIKO RUIZ MD, MD ON 01/31/2019 AT 10:26 AM EDT DISCLAIMER : THIS IS A VISIT SUMMARY EXTRACTED FROM THE [employer] CHART. IT IS NOT A COPY OF THE [employer] PROGRESS NOTE. MTDHéctor
== END ==
LOC: M PAIN 08:30
PROVIDERS: ATTEND Anesthesiology
DX: M79.18 Myalgia, other site (principal); F41.9 Anxiety disorder, unspecified; K58.9 Irritable bowel syndrome, unspecified; M25.511 Pain in right shoulder; Z87.442 Personal history of urinary calculi; Z96.611 Presence of right artificial shoulder joint; Z79.891 Long term (current) use of opiate analgesic; Z79.899 Other long term (current) drug therapy; Z87.891 Personal history of nicotine dependence
CPT/HCPCS: 20552; J3301

== ENCOUNTER → 2019-02-20 | Outpatient (CLI) | payer OTHER ==
[~2019-02-20] MED LIST changes: -BUPIVACAINE HCL 0.25% 10 ML VIAL As Ordered ONE; -BUPIVACAINE HCL 0.25% 30 ML VIAL As Ordered ONE; +SERT-141 PO; -SERT50TA PO; -TRIAMCINOLONE ACETONIDE SUSP 40 MG/ML VIAL (J3301) As Ordered ONE; -oxyCODONE 5MG TAB As Ordered ONE
--- NOTE | 2019-03-06 01:01 | ECWPNPC ---
PATIENT NAME: MEDHAT BURRELL : 1990 GENDER: MALE VISIT DATE: 02/20/2019 DISCHARGE DATE: 02/20/19 1042 VISIT LOCKED DATE TIME: PHYSICIAN: CORRINE JACOBS RESOURCE: CORRINE JACOBS REASON FOR APPOINTMENT 1. POST TPI, RUNNING LATE HISTORY OF PRESENT ILLNESS HISTORY OF PRESENT ILLNESS: HERE FOR POST PROCEDURE F/U.HAD TPI RIGHT SHOULDER ON 01/19/19.REPORTING RESOLUTION OF PRESSURE PAIN/KNOT FEELING RIGHT POSTERIOR SHOULDER/SCALENE/TRAPEZIUS REGION.RATING PAIN VAS 7/10.REVIEWED CASE WITH DR RUIZ WHO CAME IN TO EVALUATE.DISCUSSED TREATMENT OPTIONS. PAIN THE PATIENT DESCRIBES THE PAIN... FALL RISK SCREENING: SCREENING :NO FALLS REPORTED IN THE LAST YEAR CURRENT MEDICATIONS TAKING TYLENOL 325 MG TABLET 2TABLET NEEDED ORALLY EVERY 6 HRS TAKING TIZANIDINE HCL 2 MG TABLET 1 TABLET NEEDED ORALLY THREE TIMES A DAY TAKING TRAMADOL HCL 50 MG TABLET 1 TABLET NEEDED ORALLY Q8H PRN MDD3 MEDICATION LIST REVIEWED AND RECONCILED WITH THE PATIENT PAST MEDICAL HISTORY KIDNEY STONES HYDRONEPHROSIS ANXIETY PEPTIC REFLUX DISEASE IBS CHRONIC RIGHT SHOULDER PAIN ALLERGIES N.K.D.A. SURGICAL HISTORY RIGHT SHOULDER ARTHROPLASTY X2 2014/2015 RIGHT SHOULDER SURGERY 2012 FAMILY HISTORY FATHER: ALIVE MOTHER: ALIVE PATERNAL GRAND MOTHER: DIAGNOSED WITH CANCER 1 BROTHER(S) , 1 SISTER(S) - HEALTHY. 3 SON(S) - HEALTHY. DENIES FAMILY HISTORY OF UROLOGICAL DISEASES. SOCIAL HISTORY GENERAL: TOBACCO USE ARE YOU A:FORMER SMOKER HOW LONG HAS IT BEEN SINCE YOU LAST SMOKED?5-10 YEARS LATEX QUESTIONNAIRE LATEX ALLERGY : HAVE YOU EVER DEVELOPED ANY TYPE OF REACTION AFTER HANDLING LATEX PRODUCTS SUCH RUBBER GLOVES, CONDOMS, DIAPHRAGMS, BALLOONS, SOCKS, OR UNDERWEAR?NO LATEX ALLERGY : HAVE YOU EVER DEVELOPED ANY TYPE OF REACTION DURING OR AFTER DENTAL APPOINTMENT, VAGINAL/RECTAL EXAMINATION, SURGICAL PROCEDURE, OR ANY OTHER EXPOSURE?NO LATEX RISK : HAVE YOU EVER HAD ANY DIFFICULTY BREATHING OR HIVES AFTER EATING OR HANDLING ANY FRUITS, OR VEGETABLES; SUCH KIWI, BANANAS, STONE FRUITS, OR CHESTNUTSNO LATEX RISK : DO YOU HAVE A PREVIOUS PERSONAL HISTORY OF MORE THAN NINE SURGERIES, SPINA BIFIDA, OR REPEATED CATHERTIZATIONS? NO LATEX RISK : ARE YOU FREQUENTLY EXPOSED TO LATEX PRODUCTS IN YOUR OCCUPATION?NO DATE ASKED : 02/20/2019 ALCOHOL SCREENING POINTS: 3, INTERPRETATION: NEGATIVE. RECREATIONAL DRUG USE DENIES. CAFFEINE NONE. SEXUAL HX HAD SEX IN THE LAST 12 MONTHS (VAGINAL, ORAL, OR ANAL)?: YES, WITH: WOMEN ONLY, USE PROTECTION?: YES, HOW OFTEN?: ALL OF THE TIME, PREVENTION STRATEGIES DISCUSSED:: CONDOMS, HAVE YOU EVER HAD AN STD?: NO. SCIENTOLOGIST [id number] ZOROASTRIAN LANGUAGE BULGARIAN. EDUCATION COLLEGE DEGREE. 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 DIET: REGULAR. EXERCISE: WALKS. MARITAL STATUS: SINGLE. OTHERS AT HOME: OTHER RELATIVES. PAIN CLINIC PFS, CLERGY, PUBLIC HEALTH REFERRALS WAS THE PROVIDER NOTIFIED OF ANY PERTINENT INFO?YES N/A HAS THE PATIENT BEEN EDUCATED REGARDING HIS/HER PLAN OF CARE?YES HAS THE PATIENT BEEN EDUCATED REGARDING PAIN, THE RISK FOR PAIN, THE IMPORTANCE OF EFFECTIVE PAIN MANAGEMENT, AND THE PAIN ASSESSMENT PROCESS?YES ADVANCE DIRECTIVE ADVANCE DIRECTIVE DISCUSSED WITH PATIENT:YES PT DOES NOT HAVE ANY ADVANCED DIRECTIVES AND HE DECLINES INFORMATION ON HCP AT THIS TIME. REVIEWED WITH PT 08/24/18 1334 BV10/20/18 1430 REVIEWED WITH PT. AD11/22/18 0905 REVIEWED WITH PT. AD. HOSPITALIZATION/MAJOR DIAGNOSTIC PROCEDURE NONE OTHER THAN SURGERIES LISTED ABOVE REVIEW OF SYSTEMS REVIEWED BY: PROVIDER: CORRINE DAVALOS . CONSTITUTIONAL: ANY CHANGE IN YOUR MEDICAL CONDITION? NO . CHILLS NO . FEVER NO . INFECTION: DO YOU HAVE NEW INFECTIONS? NO . DO YOU HAVE HISTORY OF MRSA? NO . MUSCULOSKELETAL: ANY NEW PATTERNS OF PAIN OR NUMBNESS? NO . GASTROENTEROLOGY: ANY NEW CHANGE IN BOWEL CONTROL? NO . GENITOURINARY: ANY NEW CHANGE IN BLADDER CONTROL? NO . IS THERE A CHANCE YOU COULD BE ? NO . HEMATOLOGY/LYMPH: DO YOU TAKE ANY BLOOD THINNERS? (FOR EXAMPLE- COUMADIN, PLAVIX, AGGRENOX, PLATEL, PRADAXA, OR XARELTO) NO . WHEN WAS YOUR LAST DOSE? DATE: TIME: . NEUROLOGY: HAVE YOU FALLEN IN THE PAST 12 MONTHS? NO . ANY NEW EXTREMITY NUMBNESS OR WEAKNESS? NO . CARDIOLOGY: DO YOU HAVE A PACEMAKER OR DEFIBRILLATOR? NO . RESPIRATORY: HAVE YOU BEEN SICK IN THE PAST WEEK? NO . FEVER NO . FLU LIKE SYMPTOMS? NO . COUGH NO . INTEGUMENTARY: DO YOU HAVE ANY RASHES OR OPEN SORES? NO . ALLERGIC/IMMUNO: ARE YOU ALLERGIC TO IV DYE? NO . ANY NEW ALLERGIES? NO . PSYCHIATRIC: DO YOU HAVE THOUGHTS OF HURTING YOURSELF OR SOMEONE ELSE? NO . ARE YOU ABUSED, NEGLECTED, OR IN AN UNSAFE ENVIRONMENT? NO . ENDOCRINOLOGY: ARE YOU DIABETIC? NO . OTHER: DO YOU NEED ANY PRESCRIPTIONS? NO . IF YES, PLEASE LIST: ____ . ANY NEW PROBLEMS WITH YOUR MEDICATIONS? NO . WHEN DID YOU LAST EAT? ____ . WHEN DID YOU LAST DRINK? ____ . WHAT DID YOU LAST DRINK? ____ . NAME OF PERSON DRIVING YOU HOME? ____ . DO YOU HAVE ANY OTHER QUESTIONS OR CONCERNS TPI IN RIGHT SHOULDER, EFFECTIVE FOR 2 WEEKS . VITAL SIGNS WT 159.4 LBS, HT 64.75", BMI 26.73 INDEX, BP 128/86 MM HG, HR 77 /MIN, RR 16 /MIN, TEMP 98.0 F, OXYGEN SAT % 97%, SAFE IN ENV? (Y/N) Y, NA INITIALS AW 1006, REVIEWED BY: MARIJA. EXAMINATION SHOULDER / UPPER ARM: SHOULDER: RIGHT. INSPECTION: WELL HEALED SURGICAL SCARS.. PALPATION: NO TENDERNESS ON SUBDELTOID BURSA & BICIPITAL TENDON TRIGGER POINTS: OVER RIGHT TRAPEZIUS/RHOMBOID. GENERAL EXAMINATION: GENERAL APPEARANCE:AWAKE,ALERT ,PLEAASANT . PSYCHAFFECT NORMAL . LUNGS:LUNG LEMUS ARE CLEAR TO AUSCULTATION BILATERALLY. GOOD MOVEMENT OF AIR . HEART:S1, S2 IN A REGULAR RATE AND RHYTHM. NO SIGNIFICANT MURMURS, RUBS OR GALLOPS NOTED . ASSESSMENTS PAIN IN RIGHT SHOULDER - M25.511 (PRIMARY) MYALGIA, OTHER SITE - M79.18 OTHER CHRONIC PAIN - G89.29 TREATMENT PAIN IN RIGHT SHOULDER CONTINUE TIZANIDINE HCL TABLET, 2 MG, 1 TABLET NEEDED, ORALLY, THREE TIMES A DAY CONTINUE TRAMADOL HCL TABLET, 50 MG, 1 TABLET NEEDED, ORALLY, Q8H PRN MDD3 NOTES: REFER TO [facility] TENS UNIT RIGHT SHOULDER PAIN. [facility] RE[facility]ON:PERSISTENT RIGHT DELTOID PAIN /SHORT TERM IMPROVEMENT TPI/S/P MULTIPLE RIGHT SHOULDER SURGERIES PROCEDURE CODES FA211 ESTABILISHED PATIENT [facility] CHARGE DISPOSITION & COMMUNICATION FOLLOW UP 2 MONTHS (REASON: REFER TO GOPI FERRARO TENS UNIT RIGHT SHOULDER PAIN) ELECTRONICALLY SIGNED BY ANOOP STEINBERG ON 03/05/2019 AT 07:01 PM EDT DISCLAIMER : THIS IS A VISIT SUMMARY EXTRACTED FROM THE [employer] CHART. IT IS NOT A COPY OF THE [employer] PROGRESS NOTE. AUGUSTINE
== END ==
LOC: M PAIN 09:30
PROVIDERS: ATTEND Nurse Practitioner Family
DX: M25.511 Pain in right shoulder (principal); M79.18 Myalgia, other site; G89.29 Other chronic pain; Z86.59 Personal history of other mental and behavioral disorders; Z87.891 Personal history of nicotine dependence; Z79.899 Other long term (current) drug therapy

== ENCOUNTER → 2019-02-24 | Outpatient (CLI) | payer OTHER ==
--- NOTE | 2019-02-24 10:18 | REP ---
KUB: Single view: History: Kidney stone. Comparison study: April 23, 2016. Findings: A normal bowel gas pattern is seen. There is a 4 mm calcific opacity projecting over the lower pole of the left kidney similar to the prior study. CT exam from February 08, 2018 shows a lower pole calculus on the left. Flank stripes and psoas margins are intact. No bony abnormality is seen. Impression: 4 mm calcific density projecting over the lower pole of the left kidney may be intrarenal. Electronically Signed by Claus Henderson MD 02/24/2019 03:10 P
== END ==
LOC: M SMT 08:58
PROVIDERS: ATTEND Nurse Practitioner Family
DX: N20.0 Calculus of kidney (principal)

== ENCOUNTER → 2019-05-29 | Outpatient (CLI) | payer OTHER ==
[~2019-05-29] MED LIST changes: +CIPR-249 PO; +KETO10TAB PO; +ZOFR4TAB16 PO
--- NOTE | 2019-05-31 01:03 | ECWPNPC ---
PATIENT NAME: MEDHAT BURRELL : 1990 GENDER: MALE VISIT DATE: 05/29/2019 DISCHARGE DATE: 05/29/19 1419 VISIT LOCKED DATE TIME: PHYSICIAN: JEFF HAYES RESOURCE: JEFF HAYES REASON FOR APPOINTMENT 1. RIGHT SHOULDER HISTORY OF PRESENT ILLNESS HISTORY OF PRESENT ILLNESS: PAIN THE PATIENT DESCRIBES THE PAIN... 28 YEAR OLD MALE IN FOR CHRONIC PAIN FOLLOW UP. HE ADMITS TO STOPPING HIS PAIN MEDICATION 2 WEEKS AGO HE DID NOT FEEL THEY WERE HELPING. HE IS CURRENTLY SEEING ORTHO AND AWAITING AN EMG AND MRI. HE CURRENTLY RATES HIS PAIN AT A 6/10. FALL RISK SCREENING: SCREENING :NO FALLS REPORTED IN THE LAST YEAR CURRENT MEDICATIONS TAKING MELATONIN 3 MG TABLET 1 TABLET AT BEDTIME NEEDED WITH FOOD ORALLY ONCE A DAY NOT-TAKING TYLENOL 325 MG TABLET 2TABLET NEEDED ORALLY EVERY 6 HRS NOT-TAKING TRAMADOL HCL 50 MG TABLET 1 TABLET NEEDED ORALLY Q8H PRN MDD3 NOT-TAKING TIZANIDINE HCL 2 MG TABLET 1 TABLET NEEDED ORALLY THREE TIMES A DAY MDD3 MEDICATION LIST REVIEWED AND RECONCILED WITH THE PATIENT PAST MEDICAL HISTORY KIDNEY STONES HYDRONEPHROSIS ANXIETY PEPTIC REFLUX DISEASE IBS CHRONIC RIGHT SHOULDER PAIN ALLERGIES N.K.D.A. SURGICAL HISTORY RIGHT SHOULDER ARTHROPLASTY X2 2014/2015 RIGHT SHOULDER SURGERY 2012 FAMILY HISTORY FATHER: ALIVE MOTHER: ALIVE SIBLINGS: ALIVE PATERNAL GRAND MOTHER: DIAGNOSED WITH CANCER 1 BROTHER(S) , 1 SISTER(S) - HEALTHY. 3 SON(S) - HEALTHY. DENIES FAMILY HISTORY OF UROLOGICAL DISEASES. SOCIAL HISTORY GENERAL: TOBACCO USE ARE YOU A:FORMER SMOKER HOW LONG HAS IT BEEN SINCE YOU LAST SMOKED?5-10 YEARS OTHERS AT HOME: OTHER RELATIVES. EDUCATION COLLEGE DEGREE. DIET: REGULAR. LANGUAGE GERMAN. DOMESTIC VIOLENCE DO YOU FEEL SAFE IN YOUR ENVIRONMENT?YES RECREATIONAL DRUG USE DRUG USE?NO EXERCISE: WALKS. LEARNING BARRIERS / SPECIAL NEEDS BARRIERS TO LEARNING?NO HEARING IMPAIRED?NO VISION IMPAIRED?YES :CORRECTIVE LENSES COGNITIVELY IMPAIRED?NO READINESS TO LEARN?YES LEARNING PREFERENCES?NO LEARNING CAPABILITIES PRESENT?YES EMOTIONAL BARRIERS?NO SPECIAL DEVICES?NO WEAPONS OFFICER NEEDED?NO PAIN CLINIC PFS, CLERGY, PUBLIC HEALTH REFERRALS WAS THE PROVIDER NOTIFIED OF ANY PERTINENT INFO?YES N/A HAS THE PATIENT BEEN EDUCATED REGARDING HIS/HER PLAN OF CARE?YES HAS THE PATIENT BEEN EDUCATED REGARDING PAIN, THE RISK FOR PAIN, THE IMPORTANCE OF EFFECTIVE PAIN MANAGEMENT, AND THE PAIN ASSESSMENT PROCESS?YES LATEX QUESTIONNAIRE LATEX ALLERGY : HAVE YOU EVER DEVELOPED ANY TYPE OF REACTION AFTER HANDLING LATEX PRODUCTS SUCH RUBBER GLOVES, CONDOMS, DIAPHRAGMS, BALLOONS, SOCKS, OR UNDERWEAR?NO LATEX ALLERGY : HAVE YOU EVER DEVELOPED ANY TYPE OF REACTION DURING OR AFTER DENTAL APPOINTMENT, VAGINAL/RECTAL EXAMINATION, SURGICAL PROCEDURE, OR ANY OTHER EXPOSURE?NO LATEX RISK : HAVE YOU EVER HAD ANY DIFFICULTY BREATHING OR HIVES AFTER EATING OR HANDLING ANY FRUITS, OR VEGETABLES; SUCH KIWI, BANANAS, STONE FRUITS, OR CHESTNUTSNO LATEX RISK : DO YOU HAVE A PREVIOUS PERSONAL HISTORY OF MORE THAN NINE SURGERIES, SPINA BIFIDA, OR REPEATED CATHERIZATIONS? NO LATEX RISK : ARE YOU FREQUENTLY EXPOSED TO LATEX PRODUCTS IN YOUR OCCUPATION?NO DATE ASKED : 02/20/2019 CAFFEINE NONE. ADVANCE DIRECTIVE ADVANCE DIRECTIVE DISCUSSED WITH PATIENT:YES PT DOES NOT HAVE ANY ADVANCED DIRECTIVES AND HE DECLINES INFORMATION ON HCP AT THIS TIME. ORTHODOX [id number] RELIGIOUS MARITAL STATUS: SINGLE. ALCOHOL SCREENING POINTS: 3, INTERPRETATION: NEGATIVE. 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 SEXUAL HX HAD SEX IN THE LAST 12 MONTHS (VAGINAL, ORAL, OR ANAL)?: YES, WITH: WOMEN ONLY, USE PROTECTION?: YES, HOW OFTEN?: ALL OF THE TIME, PREVENTION STRATEGIES DISCUSSED:: CONDOMS, HAVE YOU EVER HAD AN STD?: NO. REVIEWED WITH PT 08/24/18 1334 BV10/20/18 1430 REVIEWED WITH PT. AD11/22/18 0905 REVIEWED WITH PT. MANNY WITH PATIENT 05/29/19 1350 JS. HOSPITALIZATION/MAJOR DIAGNOSTIC PROCEDURE NONE OTHER THAN SURGERIES LISTED ABOVE REVIEW OF SYSTEMS REVIEWED BY: PROVIDER: ELIANA GALVIN . CONSTITUTIONAL: ANY CHANGE IN YOUR MEDICAL CONDITION? NO . CHILLS NO . FEVER NO . INFECTION: DO YOU HAVE NEW INFECTIONS? NO . DO YOU HAVE HISTORY OF MRSA? NO . MUSCULOSKELETAL: ANY NEW PATTERNS OF PAIN OR NUMBNESS? NO . GASTROENTEROLOGY: ANY NEW CHANGE IN BOWEL CONTROL? NO . GENITOURINARY: ANY NEW CHANGE IN BLADDER CONTROL? NO . IS THERE A CHANCE YOU COULD BE ? NO . HEMATOLOGY/LYMPH: DO YOU TAKE ANY BLOOD THINNERS? (FOR EXAMPLE- COUMADIN, PLAVIX, AGGRENOX, PLATEL, PRADAXA, OR XARELTO) NO . WHEN WAS YOUR LAST DOSE? DATE: TIME: . NEUROLOGY: HAVE YOU FALLEN IN THE PAST 12 MONTHS? NO . ANY NEW EXTREMITY NUMBNESS OR WEAKNESS? NO . CARDIOLOGY: DO YOU HAVE A PACEMAKER OR DEFIBRILLATOR? NO . RESPIRATORY: HAVE YOU BEEN SICK IN THE PAST WEEK? NO . FEVER NO . FLU LIKE SYMPTOMS? NO . COUGH NO . INTEGUMENTARY: DO YOU HAVE ANY RASHES OR OPEN SORES? NO . ALLERGIC/IMMUNO: ARE YOU ALLERGIC TO IV DYE? NO . ANY NEW ALLERGIES? NO . PSYCHIATRIC: DO YOU HAVE THOUGHTS OF HURTING YOURSELF OR SOMEONE ELSE? NO . ARE YOU ABUSED, NEGLECTED, OR IN AN UNSAFE ENVIRONMENT? NO . ENDOCRINOLOGY: ARE YOU DIABETIC? NO . OTHER: DO YOU NEED ANY PRESCRIPTIONS? NO . IF YES, PLEASE LIST: ____ . ANY NEW PROBLEMS WITH YOUR MEDICATIONS? NO . WHEN DID YOU LAST EAT? ____ . WHEN DID YOU LAST DRINK? ____ . WHAT DID YOU LAST DRINK? ____ . NAME OF PERSON DRIVING YOU HOME? ____ . DO YOU HAVE ANY OTHER QUESTIONS OR CONCERNS YES, STATES HIS CURRENT MEDICATIONS WERE NOT WORKING - HE STOPPED TAKING THEM ABOUT 2 WEEKS AGO. ALSO STATES THE MEDICATIONS MADE IT HARD TO SLEEP - HE WOULD BE ABLE TO FALL ASLEEP OK BUT COULD NOT STAY ASLEEP . VITAL SIGNS WT 158.8 LBS, HT 64.75", BMI 26.63 INDEX, BP 133/77 MM HG, HR 76 /MIN, RR 16 /MIN, TEMP 97.5 F, OXYGEN SAT % 97%, SAFE IN ENV? (Y/N) YES, NA INITIALS AW 1346, REVIEWED BY: JACKY. EXAMINATION GENERAL EXAMINATION: GENERALNO ACUTE DISTRESS, WELL NOURISHED AND HYDRATED. PSYCHAPPROPRIATE MOOD AND AFFECT . LUNGS:CLEAR TO AUSCULTATION BILATERALLY, NO WHEEZES, RHONCHI, RALES. HEART:NO MURMURS, REGULAR RATE AND RHYTHM. ASSESSMENTS MYALGIA, OTHER SITE - M79.18 (PRIMARY) TREATMENT MYALGIA, OTHER SITE CLINICAL NOTES: 28 YEAR OLD MALE IN FOR CHRONIC PAIN FOLLOW UP. GIVEN PRESENTING SYMPTOMS AND RESULTS OF PHYSICAL EXAMINATION RECOMMENDED AWAITING RESULTS OF ORTHO WORKUPS PRIOR TO TRIALING ANOTHER MEDICATION AND/OR A PROCEDURE. PATIENT HAS EXPRESSED UNDERSTANDING OF AND WAS IN AGREEMENT WITH TX PLAN. GIVEN TIME TO ASK QUESTIONS AND EXPRESS CONCERNS. . PROCEDURE CODES FA211 ESTABILISHED PATIENT [facility] CHARGE DISPOSITION & COMMUNICATION FOLLOW UP 4 WEEKS (REASON: CHRONIC PAIN ) ELECTRONICALLY SIGNED BY ANOOP GUADALUPE ON 05/30/2019 AT 10:24 AM EDT DISCLAIMER : THIS IS A VISIT SUMMARY EXTRACTED FROM THE [employer] CHART. IT IS NOT A COPY OF THE [employer] PROGRESS NOTE. AUGUSTINE
== END ==
LOC: M PAIN 13:45
PROVIDERS: ATTEND Family Medicine
DX: M79.18 Myalgia, other site (principal); F41.9 Anxiety disorder, unspecified; K21.9 Gastro-esophageal reflux disease without esophagitis; K58.9 Irritable bowel syndrome, unspecified; M25.511 Pain in right shoulder; Z87.891 Personal history of nicotine dependence; Z87.442 Personal history of urinary calculi; Z79.899 Other long term (current) drug therapy

== ENCOUNTER → 2019-06-16 | Outpatient (CLI) | payer OTHER ==
[~2019-06-16] MED LIST changes: +ANUC25SU PR; +CYMB60CA3 PO; +DICL50TAB PO; +DOXY100C37 PO; +OXYC5CAP56 PO; +TRAM50TA2 PO
--- NOTE | 2019-06-16 18:16 | REP ---
MRI RIGHT SHOULDER: TECHNIQUE: Axial T2 fat sat, gradient echo, sagittal oblique T2 fat sat, coronal oblique T1, T2 fat sat. COMPARISON: MRI 07/26/2014. 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 Rotator cuff tendons are intact with no tear. There are very mild hypertrophic changes at the acromioclavicular joint with a type 2 acromion. Biceps tendon is within the bicipital groove with no tenosynovitis. I do not see a Hill Sach's deformity. The deltoid muscle demonstrates no abnormal signal. The biceps labral complex appears intact. No new labral tears is seen. There is again truncation of the anterior labrum. There is blooming artifact from anchors in the anterior bony glenoid. This somewhat limits evaluation of adjacent structures at the glenohumeral joint. However there is mild to moderate spurring of the humeral head medially which appears to have slightly increased since the prior study in 2013. 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 There is new mild subchondral marrow edema in the anterior aspect of the humeral head at the anterior margin of the glenohumeral joint. There is a small joint effusion. No paralabral cyst is seen. IMPRESSION: No evidence of rotator cuff tear or new labral tear as discussed above. Evidence of prior Bankart repair. There appears to be slightly increased spurring of the medial humeral head and also of moderate chondromalacia of the humeral head and adjacent glenoid. There is new mild subchondral marrow edema in the anterior humeral head. Electronically Signed by Roberto Carlos Arce MD 06/19/2019 11:29 A
== END ==
LOC: M RAD 10:52
PROVIDERS: ATTEND Orthopaedic Surgery Sports Medicine
DX: M25.711 Osteophyte, right shoulder (principal)

== ENCOUNTER → 2019-07-13 | Outpatient (CLI) | payer OTHER ==
--- NOTE | 2019-07-18 01:29 | ECWPNPC ---
PATIENT NAME: MEDHAT BURRELL : 1990 GENDER: MALE VISIT DATE: 07/13/2019 DISCHARGE DATE: 07/13/19 1012 VISIT LOCKED DATE TIME: PHYSICIAN: JEFF HAYES RESOURCE: JEFF HAYES REASON FOR APPOINTMENT 1. CHRONIC PAIN HISTORY OF PRESENT ILLNESS HISTORY OF PRESENT ILLNESS: PAIN THE PATIENT DESCRIBES THE PAIN... 29-YEAR-OLD MALE IN FOR CHRONIC PAIN FOLLOW-UP. HE RATES HIS PAIN CURRENTLY AT A 5 OUT OF 10 AND DESCRIBES IT STABBING, SHARP, STABBING, SORE, AND TENDER. PATIENT ADMITS TO AN APPOINTMENT WITH DR. SIMON LAST EVENING FOR AN EMG STUDY. HE FURTHER ADMITS TO AN APPOINTMENT TODAY WITH DR. ARRIAGA IN ORTHOPEDICS. PATIENT STATES HE WILL HAVE RECORDS FROM THESE VISITS TRANSFERRED TO US. FALL RISK SCREENING: SCREENING :NO FALLS REPORTED IN THE LAST YEAR CURRENT MEDICATIONS TAKING MELATONIN 3 MG TABLET 1 TABLET AT BEDTIME NEEDED WITH FOOD ORALLY ONCE A DAY TAKING DULOXETINE HCL 30 MG CAPSULE DELAYED RELEASE PARTICLES 1 CAPSULE ORALLY BID NOT-TAKING TYLENOL 325 MG TABLET 2TABLET NEEDED ORALLY EVERY 6 HRS NOT-TAKING TRAMADOL HCL 50 MG TABLET 1 TABLET NEEDED ORALLY Q8H PRN MDD3 NOT-TAKING TIZANIDINE HCL 2 MG TABLET 1 TABLET NEEDED ORALLY THREE TIMES A DAY MDD3 MEDICATION LIST REVIEWED AND RECONCILED WITH THE PATIENT PAST MEDICAL HISTORY KIDNEY STONES HYDRONEPHROSIS ANXIETY/DEPRESSION PEPTIC REFLUX DISEASE IBS CHRONIC RIGHT SHOULDER PAIN ALLERGIES N.K.D.A. SURGICAL HISTORY RIGHT SHOULDER ARTHROPLASTY X2 2014/2015 RIGHT SHOULDER SURGERY 2012 FAMILY HISTORY FATHER: ALIVE MOTHER: ALIVE SIBLINGS: ALIVE PATERNAL GRAND MOTHER: DIAGNOSED WITH CANCER 1 BROTHER(S) , 1 SISTER(S) - HEALTHY. 3 SON(S) - HEALTHY. DENIES FAMILY HISTORY OF UROLOGICAL DISEASES. SOCIAL HISTORY GENERAL: TOBACCO USE ARE YOU A:FORMER SMOKER HOW LONG HAS IT BEEN SINCE YOU LAST SMOKED?5-10 YEARS OTHERS AT HOME: OTHER RELATIVES. EDUCATION COLLEGE DEGREE. DIET: REGULAR. LANGUAGE TURKMEN. DOMESTIC VIOLENCE DO YOU FEEL SAFE IN YOUR ENVIRONMENT?YES RECREATIONAL DRUG USE DRUG USE?NO EXERCISE: WALKS. LEARNING BARRIERS / SPECIAL NEEDS BARRIERS TO LEARNING?NO HEARING IMPAIRED?NO VISION IMPAIRED?YES :CORRECTIVE LENSES COGNITIVELY IMPAIRED?NO READINESS TO LEARN?YES LEARNING PREFERENCES?NO LEARNING CAPABILITIES PRESENT?YES EMOTIONAL BARRIERS?NO SPECIAL DEVICES?NO POLICE DETECTIVE NEEDED?NO PAIN CLINIC PFS, CLERGY, PUBLIC HEALTH REFERRALS WAS THE PROVIDER NOTIFIED OF ANY PERTINENT INFO?YES N/A HAS THE PATIENT BEEN EDUCATED REGARDING HIS/HER PLAN OF CARE?YES HAS THE PATIENT BEEN EDUCATED REGARDING PAIN, THE RISK FOR PAIN, THE IMPORTANCE OF EFFECTIVE PAIN MANAGEMENT, AND THE PAIN ASSESSMENT PROCESS?YES LATEX QUESTIONNAIRE LATEX ALLERGY : HAVE YOU EVER DEVELOPED ANY TYPE OF REACTION AFTER HANDLING LATEX PRODUCTS SUCH RUBBER GLOVES, CONDOMS, DIAPHRAGMS, BALLOONS, SOCKS, OR UNDERWEAR?NO LATEX ALLERGY : HAVE YOU EVER DEVELOPED ANY TYPE OF REACTION DURING OR AFTER DENTAL APPOINTMENT, VAGINAL/RECTAL EXAMINATION, SURGICAL PROCEDURE, OR ANY OTHER EXPOSURE?NO LATEX RISK : HAVE YOU EVER HAD ANY DIFFICULTY BREATHING OR HIVES AFTER EATING OR HANDLING ANY FRUITS, OR VEGETABLES; SUCH KIWI, BANANAS, STONE FRUITS, OR CHESTNUTSNO LATEX RISK : DO YOU HAVE A PREVIOUS PERSONAL HISTORY OF MORE THAN NINE SURGERIES, SPINA BIFIDA, OR REPEATED CATHERIZATIONS? NO LATEX RISK : ARE YOU FREQUENTLY EXPOSED TO LATEX PRODUCTS IN YOUR OCCUPATION?NO DATE ASKED : 02/20/2019 CAFFEINE NONE. ADVANCE DIRECTIVE ADVANCE DIRECTIVE DISCUSSED WITH PATIENT:YES PT DOES NOT HAVE ANY ADVANCED DIRECTIVES AND HE DECLINES INFORMATION ON HCP AT THIS TIME. QUAKER [id number] ADVENT[employer] MARITAL STATUS: SINGLE. ALCOHOL SCREENING POINTS: 3, INTERPRETATION: NEGATIVE. 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 SEXUAL HX HAD SEX IN THE LAST 12 MONTHS (VAGINAL, ORAL, OR ANAL)?: YES, WITH: WOMEN ONLY, USE PROTECTION?: YES, HOW OFTEN?: ALL OF THE TIME, PREVENTION STRATEGIES DISCUSSED:: CONDOMS, HAVE YOU EVER HAD AN STD?: NO. REVIEWED WITH PT 08/24/18 1334 BV10/20/18 1430 REVIEWED WITH PT. AD11/22/18 0905 REVIEWED WITH PT. ADREVIEWED WITH PATIENT 05/29/19 1350 JSREVIEWED WITH PATIENT 07/13/19 0939 NLJ. HOSPITALIZATION/MAJOR DIAGNOSTIC PROCEDURE NONE OTHER THAN SURGERIES LISTED ABOVE REVIEW OF SYSTEMS REVIEWED BY: PROVIDER: ELIANA GALVIN . CONSTITUTIONAL: ANY CHANGE IN YOUR MEDICAL CONDITION? YES- STATES HE HAS BEEN DIAGNOSED WITH DEPRESSION, STARTED ON DULOXETINE BY PCP . CHILLS NO . FEVER NO . INFECTION: DO YOU HAVE NEW INFECTIONS? NO . DO YOU HAVE HISTORY OF MRSA? NO . MUSCULOSKELETAL: ANY NEW PATTERNS OF PAIN OR NUMBNESS? NO- PAIN IS NOT ANY WORSE, JUST CONTINUOUS PAIN . GASTROENTEROLOGY: ANY NEW CHANGE IN BOWEL CONTROL? NO . GENITOURINARY: ANY NEW CHANGE IN BLADDER CONTROL? NO . IS THERE A CHANCE YOU COULD BE ? NO . HEMATOLOGY/LYMPH: DO YOU TAKE ANY BLOOD THINNERS? (FOR EXAMPLE- COUMADIN, PLAVIX, AGGRENOX, PLATEL, PRADAXA, OR XARELTO) NO . WHEN WAS YOUR LAST DOSE? DATE: TIME: . NEUROLOGY: HAVE YOU FALLEN IN THE PAST 12 MONTHS? NO . ANY NEW EXTREMITY NUMBNESS OR WEAKNESS? NO . CARDIOLOGY: DO YOU HAVE A PACEMAKER OR DEFIBRILLATOR? NO . RESPIRATORY: HAVE YOU BEEN SICK IN THE PAST WEEK? NO . FEVER NO . FLU LIKE SYMPTOMS? NO . COUGH NO . INTEGUMENTARY: DO YOU HAVE ANY RASHES OR OPEN SORES? NO . ALLERGIC/IMMUNO: ARE YOU ALLERGIC TO IV DYE? NO . ANY NEW ALLERGIES? NO . PSYCHIATRIC: DO YOU HAVE THOUGHTS OF HURTING YOURSELF OR SOMEONE ELSE? NO . ARE YOU ABUSED, NEGLECTED, OR IN AN UNSAFE ENVIRONMENT? NO . ENDOCRINOLOGY: ARE YOU DIABETIC? NO . OTHER: DO YOU NEED ANY PRESCRIPTIONS? YES . IF YES, PLEASE LIST: ____PT WOULD LIKE SOMETHING TO HELP WITH PAIN CONTROL . ANY NEW PROBLEMS WITH YOUR MEDICATIONS? NO . WHEN DID YOU LAST EAT? ____ . WHEN DID YOU LAST DRINK? ____ . WHAT DID YOU LAST DRINK? ____ . NAME OF PERSON DRIVING YOU HOME? ____ . DO YOU HAVE ANY OTHER QUESTIONS OR CONCERNS YES- PT WOULD LIKE TO TRY SOMETHING TO HELP WITH PAIN CONTROL . VITAL SIGNS WT 154.6 LBS, HT 64.75", BMI 25.92 INDEX, BP 135/88 MM HG, HR 70 /MIN, RR 16 /MIN, TEMP 96.8 F, OXYGEN SAT % 98%, SAFE IN ENV? (Y/N) YES, NA INITIALS CA 09:32, REVIEWED BY: BLAS. EXAMINATION GENERAL EXAMINATION: GENERALNO ACUTE DISTRESS, WELL NOURISHED AND HYDRATED. PSYCHAPPROPRIATE MOOD AND AFFECT . LUNGS:CLEAR TO AUSCULTATION BILATERALLY, NO WHEEZES, RHONCHI, RALES. HEART:NO MURMURS, REGULAR RATE AND RHYTHM. MUSCULOSKELETAL:ENDORSES POINT TENDERNESS POSTERIOR ASPECT OF RIGHT SHOULDER. SURROUNDING SKIN SHOWS NO ERYTHEMA, ECCHYMOSIS, INCREASED WARMTH, AND/OR SKIN ERUPTIONS NOTED. . ASSESSMENTS MYALGIA, OTHER SITE - M79.18 (PRIMARY) TREATMENT MYALGIA, OTHER SITE START DICLOFENAC SODIUM TABLET DELAYED RELEASE, 50 MG, 1 TABLET WITH FOOD OR MILK, ORALLY, THREE TIMES A DAY, 30 DAY(S), 90 NOTES: TPI OF RIGHT SHOULDER. CLINICAL NOTES: 29-YEAR-OLD MALE IN FOR CHRONIC PAIN FOLLOW-UP. GIVEN PRESENTING SYMPTOMS AND RESULTS PHYSICAL EXAMINATION RECOMMENDED TPI OF RIGHT SHOULDER, STARTING DICLOFENAC, AND DISCUSSING POTENTIAL INCREASE OF CYMBALTA WITH PATIENT'S PCP. PATIENT HAS EXPRESSED UNDERSTANDING OF AND WAS IN AGREEMENT WITH TREATMENT PLAN. PREVENTIVE MEDICINE PAIN CLINIC TEACHING: MEDICATIONS DICLOFENAC SODIUM TEACHING SHEETS PRINTED AND REVIEWED WITH PATIENT 1008 NLJ. PROCEDURE TEACHING TRIGGER POINT INJECTION INFORMATION PRINTED AND REVIEWED WITH PATEINT 07/13/19 1005 NLJ. PROCEDURE CODES FA211 ESTABILISHED PATIENT [facility] CHARGE DISPOSITION & COMMUNICATION FOLLOW UP POST PROCEDURE (REASON: TPI OF RIGHT SHOULDER ) ELECTRONICALLY SIGNED BY ANOOP GUADALUPE ON 07/14/2019 AT 08:40 AM EDT DISCLAIMER : THIS IS A VISIT SUMMARY EXTRACTED FROM THE [employer] CHART. IT IS NOT A COPY OF THE [employer] PROGRESS NOTE. AUGUSTINE
== END ==
LOC: M PAIN 09:30
PROVIDERS: ATTEND Family Medicine
DX: M79.18 Myalgia, other site (principal); Z86.59 Personal history of other mental and behavioral disorders; Z87.891 Personal history of nicotine dependence; Z79.899 Other long term (current) drug therapy

== ENCOUNTER 2019-07-22 18:12 | Emergency (ER) | payer OTHER ==
[~2019-07-22] VITALS: Ht 170.2 cm; Wt 70.5 kg
[2019-07-22 18:12] VITALS: BP 148/88
[~2019-07-22 18:12] MED LIST changes: -ANUC25SU PR; -CYMB60CA3 PO; -DICL50TAB PO; -DOXY100C37 PO; -OXYC5CAP56 PO; -TRAM50TA2 PO
[2019-07-22] MEDS ORDERED: DICL50TAB PO (18:28)
[2019-07-22] MEDS ORDERED: CYMB60CA3 PO (18:29)
[2019-07-22 18:47] LABS: BASO % 0.3 % (0.0-1.0); EOS # 0.2 10^3/uL (0.0-0.5); HEMATOCRIT 42.7 % (42.0-52.0); HEMOGLOBIN 14.7 g/dl (13.5-17.5); LYMPH % 28.9 % (24.0-44.0); MEAN CORPUSCULAR HEMOGLOBIN 30.3 pg (27.0-33.0); MEAN CORPUSCULAR HGB CONC 34.4 g/dl (32.0-36.5); MONO # 0.6 10^3/uL (0.0-0.8); MONO % 8.6 % (0.0-5.0); NEUTROPHILS % 58.9 % (36.0-66.0); PLATELET COUNT, AUTOMATED 342 10^3/uL (150-450); RED BLOOD COUNT 4.85 10^6/uL (4.30-6.10); WHITE BLOOD COUNT 6.8 10^3/uL (4.0-10.0)
[2019-07-22 19:01] LABS: INR 1.03; PARTIAL THROMBOPLASTIN TIME 28.5 SECONDS (25.0-38.4); PROTHROMBIN TIME 13.2 SECONDS (11.8-14.0)
[2019-07-22 19:23] LABS: ALBUMIN 4.1 GM/DL (3.2-5.2); ALT/SGPT 26 U/L (12-78); AMYLASE 140 U/L (25-115); BILIRUBIN,DIRECT 0.1 MG/DL (0.0-0.2); BILIRUBIN,TOTAL 0.2 MG/DL (0.2-1.0); BLOOD UREA NITROGEN 12 MG/DL (7-18); CALCIUM LEVEL 9.1 MG/DL (8.5-10.1); CARBON DIOXIDE LEVEL 28 MEQ/L (21-32); CHLORIDE LEVEL 106 MEQ/L (98-107); CREATININE FOR GFR 0.96 MG/DL (0.70-1.30); GLOMERULAR FILTRATION RATE > 60.0 (>60); GLUCOSE, FASTING 91 MG/DL (70-100); LIPASE 1785 U/L (73-393); POTASSIUM SERUM 4.3 MEQ/L (3.5-5.1); SODIUM LEVEL 140 MEQ/L (136-145); TOTAL PROTEIN 7.4 GM/DL (6.4-8.2)
[2019-07-22] MEDS ORDERED: ANUC25SU PR (19:38)
== END 2019-07-22 19:52 | disposition home or self-care (01) ==
LOC: M ED 18:12
DX: K64.8 Other hemorrhoids (principal); F33.9 Major depressive disorder, recurrent, unspecified; K58.9 Irritable bowel syndrome, unspecified; Z79.899 Other long term (current) drug therapy

== ENCOUNTER 2019-08-04 19:33 | Emergency (ER) | payer OTHER ==
[~2019-08-04] VITALS: Ht 170.2 cm; Wt 70.5 kg
[~2019-08-04 19:33] MED LIST changes: +ANUC25SU PR; +CYMB60CA3 PO; +DICL50TAB PO
[2019-08-04 20:19] LABS: BASO % 0.3 % (0.0-1.0); EOS # 0.1 10^3/uL (0.0-0.5); EOS % 1.5 % (0.0-3.0); HEMATOCRIT 42.5 % (42.0-52.0); LYMPH % 25.7 % (24.0-44.0); MEAN CORPUSCULAR HEMOGLOBIN 30.7 pg (27.0-33.0); MEAN CORPUSCULAR HGB CONC 35.3 g/dl (32.0-36.5); MEAN CORPUSCULAR VOLUME 87.1 fl (80.0-96.0); MONO # 0.7 10^3/uL (0.0-0.8); MONO % 8.5 % (0.0-5.0); NEUTROPHILS % 63.7 % (36.0-66.0); PLATELET COUNT, AUTOMATED 326 10^3/uL (150-450); RED BLOOD COUNT 4.88 10^6/uL (4.30-6.10); WHITE BLOOD COUNT 7.9 10^3/uL (4.0-10.0)
[2019-08-04 20:41] LABS: ALBUMIN 4.2 GM/DL (3.2-5.2); ALT/SGPT 47 U/L (12-78); BILIRUBIN,DIRECT 0.1 MG/DL (0.0-0.2); BILIRUBIN,TOTAL 0.2 MG/DL (0.2-1.0); BLOOD UREA NITROGEN 12 MG/DL (7-18); CALCIUM LEVEL 9.3 MG/DL (8.5-10.1); CARBON DIOXIDE LEVEL 28 MEQ/L (21-32); CHLORIDE LEVEL 106 MEQ/L (98-107); CREATININE FOR GFR 1.21 MG/DL (0.70-1.30); GLOMERULAR FILTRATION RATE > 60.0 (>60); GLUCOSE, FASTING 123 MG/DL (70-100); LIPASE 173 U/L (73-393); POTASSIUM SERUM 3.9 MEQ/L (3.5-5.1); SODIUM LEVEL 140 MEQ/L (136-145); TOTAL PROTEIN 7.9 GM/DL (6.4-8.2)
[2019-08-04] MEDS ORDERED: ISOVUE-370 76% 100ML VIAL (Q9967) As Ordered ONE (21:10)
[2019-08-04] MEDS ORDERED: ONDANSETRON 4MG/2ML VIAL (J2405) IV ONE (21:15)
[2019-08-04] MEDS ORDERED: NS 1,000 ML IV ONE (21:15)
[2019-08-04] MEDS ORDERED: KETOROLAC 30 MG/ML VIAL (J1885) IV ONE (21:15)
--- NOTE | 2019-08-04 23:15 | REPVR ---
PROCEDURE INFORMATION: Exam: CT Abdomen and Pelvis With Contrast Exam date and time: 08/04/2019 10:05 PM Clinical history: 29 years old, male; Abdominal pain; Localized; Right lower quadrant (rlq); Additional info: Rlq pain TECHNIQUE: Imaging protocol: Computed tomography of the abdomen and pelvis with intravenous contrast. Axial, coronal and sagittal reformatted images were created and reviewed. Radiation optimization: All CT scans at this facility use at least one of these dose optimization techniques: automated exposure control; mA and/or kV adjustment per patient size (includes targeted exams where dose is matched to clinical indication); or iterative reconstruction. Contrast material: ISOVUE 370; Contrast volume: 100 ml; Contrast route: IV; COMPARISON: CT ABD PELVIS W/O CONTRAST 02/08/2018 5:27 AM FINDINGS: Liver: Unremarkable. Gallbladder and bile ducts: No radiodense gallstones. No biliary ductal dilatation. Pancreas: Unremarkable. Spleen: Unremarkable. Adrenals: Unremarkable. Kidneys and ureters: Obstructing left renal calculus. No hydronephrosis. Stomach and bowel: No bowel wall thickening. No obstruction. No pneumatosis. Appendix: Normal. Intraperitoneal space: No free fluid. No organized fluid collection. No free air. Vasculature: Unremarkable. No aneurysm. Lymph nodes: No pathologically enlarged lymph nodes. Bladder: Unremarkable. Reproductive: Unremarkable. Bones/joints: No acute osseous abnormality. Soft tissues: Unremarkable. IMPRESSION: 1. No CT evidence of acute intra-abdominal or pelvic pathology. 2. Additional findings, as above. Electronically signed by: Yasir Robins On 08/04/2019 23:15:22 PM
--- NOTE | 2019-08-05 00:56 | REPVR ---
PROCEDURE INFORMATION: Exam: US Scrotum Exam date and time: 08/05/2019 12:45 AM Clinical history: 29 years old, male; Scrotum pain; Additional info: Right testicle pain TECHNIQUE: Imaging protocol: Real-time ultrasound of the scrotum and contents with color Doppler and image documentation. COMPARISON: No relevant prior studies available. FINDINGS: Right Testicle: 4.2 x 2 x 3 cm. No mass. No torsion. Mildly increased vascular flow. Left Testicle: 3.4 x 1.7 x 2.9 cm. No mass. No torsion. Normal vascular flow. Epididymides: Mildly enlarged, edematous and hyperemic right epididymis. Scrotum: Trace right-sided hydrocele. IMPRESSION: Findings compatible with right-sided epididymoorchitis, as described above. Electronically signed by: Yasir Robins On 08/05/2019 00:56:38 AM
[2019-08-05] MEDS ORDERED: DOXY100C37 PO (01:10)
[2019-08-05 01:12] VITALS: BP 138/83
[2019-08-05] MEDS ORDERED: DOXYCYCLINE HYCLATE 100 MG TAB PO ONE (01:15)
[2019-08-05] MEDS ORDERED: cefTRIAXone SOD 250 MG VIAL (J0696) IM ONE (01:15)
[2019-08-05] MEDS ORDERED: LIDOCAINE 1% SDV 5 ML VIAL DILUENT ONE (01:15)
== END 2019-08-05 01:43 | disposition home or self-care (01) ==
LOC: M ED 19:33
DX: N45.3 Epididymo-orchitis (principal); F33.9 Major depressive disorder, recurrent, unspecified; K58.9 Irritable bowel syndrome, unspecified; Z79.899 Other long term (current) drug therapy
CPT/HCPCS: 36415; 74177; 76870; 80048; 80076; 81001; 83690; 85025; 93976; 96361; 96372; 96374; 96375; 99284; J0696; J1885; J2405; Q9967

== ENCOUNTER → 2019-08-22 | Outpatient (CLI) | payer OTHER ==
[~2019-08-22] MED LIST changes: +DOXY100C37 PO
--- NOTE | 2019-08-22 08:35 | REP ---
Clinical: Abnormal liver function tests. Technique: Real time cason scale ultrasound examination using curved array transducer. Findings: Liver is normal in contour, size, echogenicity. No focal hepatic lesion identified. Pancreas is incompletely evaluated but visualized portions appear normal. Gallbladder is normal and without gallstones, wall thickening, or pericholecystic fluid. No biliary ductal dilatation is appreciated and the common bile duct measures 4.0 mm diameter. The right kidney is normal in reniform shape without hydronephrosis and measures 9.8 x 5.3 x 5.3 cm. No ascites in the visualized right upper quadrant. Impression: 1. Normal liver/right upper quadrant ultrasound. Electronically Signed by Sergey Olivo MD 08/22/2019 08:27 A
== END ==
LOC: M RAD 08:02
PROVIDERS: ATTEND Internal Medicine Gastroenterology
DX: R74.8 Abnormal levels of other serum enzymes (principal)

== ENCOUNTER → 2019-10-20 | Day surgery (SDC) | payer OTHER ==
[~2019-10-20] VITALS: Ht 170.2 cm; Wt 67.1 kg
[~2019-10-20] MED LIST changes: +LIDOCAINE 2% INJ 100 MG/5 ML SDV (FOR ANES.) As Ordered ONE; +NS 1,000 ML IV SCH; +OXYC5CAP56 PO; +PROPOFOL 200 MG/20 ML VIAL As Ordered ONE; +SCOPOLAMINE 1MG TRANSDERMAL PATCH As Ordered ONE; +SCOPOLAMINE 1MG TRANSDERMAL PATCH TOP ONE; +TRAM50TA2 PO
--- NOTE | 2019-10-20 10:41 | ROOR ---
Patient Name: Sergey Dangelo Procedure Date: 10/20/2019 10:26 AM Date of : 1990 Age: 29 Room: [facility] Gender: Male Note Status: Finalized Procedure: Upper GI endoscopy Indications: Abdominal pain, Suspected irritable bowel syndrome, Diarrhea Providers: Reuben VELAZQUEZ MD Referring MD: DUSTIN SCHULZ DO Requesting Provider: Medicines: Monitored Anesthesia Care Complications: No immediate complications. Procedure: Pre-Anesthesia Assessment: - The heart rate, respiratory rate, oxygen saturations, blood pressure, adequacy of pulmonary ventilation, and response to care were monitored throughout the procedure. The Endoscope was introduced through the mouth, and advanced to the third part of duodenum. The upper GI endoscopy was accomplished without difficulty. The patient tolerated the procedure well. Findings: The esophagus was normal. The stomach was normal. The examined duodenum was normal. Biopsies for histology were taken with a cold forceps in the second portion of the duodenum and in the third portion of the duodenum for evaluation of celiac disease. Impression: - Normal esophagus. - Normal stomach. - Normal examined duodenum. - Biopsies were taken with a cold forceps for evaluation of celiac disease. Recommendation: - Await pathology results. - Observe patient's clinical course. - Telephone endoscopist for pathology results in 2 weeks. Reuben Velazquez MD Reuben VELAZQUEZ MD 10/20/2019 10:41:08 AM Electronically signed by Reuben VELAZQUEZ MD Number of Addenda: 0 Note Initiated On: 10/20/2019 10:26 AM Estimated Blood Loss: Estimated blood loss: none.
--- NOTE | 2019-10-20 10:57 | ROOR ---
Patient Name: Sergey Dangelo Procedure Date: 10/20/2019 10:27 AM Date of : 1990 Age: 29 Room: [facility] Gender: Male Note Status: Finalized Procedure: Colonoscopy Indications: Generalized abdominal pain, Follow-up for history of adenomatous polyps in the colon, Change in bowel habits Providers: Reuben VELAZQUEZ MD Referring MD: DUSTIN SCHULZ DO Requesting Provider: Medicines: Monitored Anesthesia Care Complications: No immediate complications. Procedure: Pre-Anesthesia Assessment: - The heart rate, respiratory rate, oxygen saturations, blood pressure, adequacy of pulmonary ventilation, and response to care were monitored throughout the procedure. The Colonoscope was introduced through the anus and advanced to 11 cm into the ileum. The colonoscopy was performed without difficulty. The patient tolerated the procedure well. The quality of the bowel preparation was good. Findings: The perianal and digital rectal examinations were normal. The colon appeared normal. Non-bleeding internal hemorrhoids were found during retroflexion. The hemorrhoids were medium-sized. The terminal ileum appeared normal. Impression: - Non-bleeding internal hemorrhoids. - The entire colon is normal. - The examined portion of the ileum was normal. - No specimens collected. - (Irritable Bowel Syndrome/IBS suspected.) Recommendation: - Use fiber, for example Citrucel, Fibercon, Konsyl or Metamucil. - Use Bentyl (dicyclomine) 20 mg PO two to three times a day. - (the script was sent to your pharmacy on file) Reuben Velazquez MD Reuben VELAZQUEZ MD 10/20/2019 10:57:00 AM Electronically signed by Reuben VELAZQUEZ MD Number of Addenda: 0 Note Initiated On: 10/20/2019 10:27 AM Estimated Blood Loss: Estimated blood loss: none.
[2019-10-20 11:32] VITALS: BP 117/76
== END | disposition home or self-care (01) ==
LOC: M OPP 08:58
PROVIDERS: ATTEND Internal Medicine Gastroenterology
DX: K64.8 Other hemorrhoids (principal); R10.84 Generalized abdominal pain; R19.4 Change in bowel habit; Z86.010 Personal history of colon polyps; R19.7 Diarrhea, unspecified; Z79.891 Long term (current) use of opiate analgesic; Z79.899 Other long term (current) drug therapy

== ENCOUNTER → 2019-11-23 | Outpatient (CLI) | payer OTHER ==
[~2019-11-23] MED LIST changes: +BUPIVACAINE HCL 0.25% 30 ML VIAL As Ordered ONE; -LIDOCAINE 2% INJ 100 MG/5 ML SDV (FOR ANES.) As Ordered ONE; -NS 1,000 ML IV SCH; -PROPOFOL 200 MG/20 ML VIAL As Ordered ONE; -SCOPOLAMINE 1MG TRANSDERMAL PATCH As Ordered ONE; -SCOPOLAMINE 1MG TRANSDERMAL PATCH TOP ONE
--- NOTE | 2019-12-05 05:47 | ECWPNPC ---
PATIENT NAME: MEDHAT BURRELL : 1990 GENDER: MALE VISIT DATE: 11/23/2019 DISCHARGE DATE: 11/23/19 1301 VISIT LOCKED DATE TIME: PHYSICIAN: KEIKO RUIZ MD RESOURCE: KEIKO RUIZ MD REASON FOR APPOINTMENT 1. TPI RT SHOULDER HISTORY OF PRESENT ILLNESS HISTORY OF PRESENT ILLNESS: PAIN THE PATIENT DESCRIBES THE PAIN... FALL RISK SCREENING: SCREENING :NO FALLS REPORTED IN THE LAST YEAR CURRENT MEDICATIONS TAKING MELATONIN 3 MG TABLET 1 TABLET AT BEDTIME NEEDED WITH FOOD ORALLY ONCE A DAY, NOTES: NONE LATELY TAKING DULOXETINE HCL 60 MG CAPSULE DELAYED RELEASE PARTICLES 1 CAPSULE ORALLY DAILY, NOTES: 11/23/19814 TAKING DICYCLOMINE HCL 20 MG TABLET 1 TABLET ORALLY THREE TIMES A DAY, NOTES: 11/23/19814 NOT-TAKING TYLENOL 325 MG TABLET 2TABLET NEEDED ORALLY EVERY 6 HRS NOT-TAKING TRAMADOL HCL 50 MG TABLET 1 TABLET NEEDED ORALLY Q8H PRN MDD3 NOT-TAKING TIZANIDINE HCL 2 MG TABLET 1 TABLET NEEDED ORALLY THREE TIMES A DAY MDD3 DISCONTINUED DICLOFENAC SODIUM 50 MG TABLET DELAYED RELEASE 1 TABLET WITH FOOD OR MILK ORALLY THREE TIMES A DAY DISCONTINUED BENTYL 20 MG TABLET DIRECTED ORALLY MAY TAKE UP TO 3 TIMES A DAY NEEDED MEDICATION LIST REVIEWED AND RECONCILED WITH THE PATIENT PAST MEDICAL HISTORY KIDNEY STONES HYDRONEPHROSIS ANXIETY/DEPRESSION PEPTIC REFLUX DISEASE IBS CHRONIC RIGHT SHOULDER PAIN ALLERGIES N.K.D.A. SURGICAL HISTORY RIGHT SHOULDER ARTHROPLASTY X2 RIGHT SHOULDER SURGERY 2012 RIGHT SHOULDER REPLACEMENT 08/2019 FAMILY HISTORY FATHER: ALIVE MOTHER: ALIVE SIBLINGS: ALIVE PATERNAL GRAND MOTHER: DIAGNOSED WITH OTHER MALIGNANT NEOPLASM OF UNSPECIFIED SITE 1 BROTHER(S) , 1 SISTER(S) - HEALTHY. 3 SON(S) - HEALTHY. DENIES FAMILY HISTORY OF UROLOGICAL DISEASES. SOCIAL HISTORY GENERAL: TOBACCO USE ARE YOU A:FORMER SMOKER HOW LONG HAS IT BEEN SINCE YOU LAST SMOKED?5-10 YEARS OTHERS AT HOME: OTHER RELATIVES. EDUCATION COLLEGE DEGREE. DIET: REGULAR. LANGUAGE MOZAMBICAN. DOMESTIC VIOLENCE DO YOU FEEL SAFE IN YOUR ENVIRONMENT?YES RECREATIONAL DRUG USE DRUG USE?NO EXERCISE: WALKS. LEARNING BARRIERS / SPECIAL NEEDS BARRIERS TO LEARNING?NO HEARING IMPAIRED?NO VISION IMPAIRED?YES COGNITIVELY IMPAIRED?NO :CORRECTIVE LENSES READINESS TO LEARN?YES LEARNING PREFERENCES?NO LEARNING CAPABILITIES PRESENT?YES EMOTIONAL BARRIERS?NO SPECIAL DEVICES?NO MANAGER PAID NEEDED?NO PAIN CLINIC PFS, CLERGY, PUBLIC HEALTH REFERRALS WAS THE PROVIDER NOTIFIED OF ANY PERTINENT INFO?YES N/A HAS THE PATIENT BEEN EDUCATED REGARDING HIS/HER PLAN OF CARE?YES HAS THE PATIENT BEEN EDUCATED REGARDING PAIN, THE RISK FOR PAIN, THE IMPORTANCE OF EFFECTIVE PAIN MANAGEMENT, AND THE PAIN ASSESSMENT PROCESS?YES LATEX QUESTIONNAIRE LATEX ALLERGY : HAVE YOU EVER DEVELOPED ANY TYPE OF REACTION AFTER HANDLING LATEX PRODUCTS SUCH RUBBER GLOVES, CONDOMS, DIAPHRAGMS, BALLOONS, SOCKS, OR UNDERWEAR?NO LATEX ALLERGY : HAVE YOU EVER DEVELOPED ANY TYPE OF REACTION DURING OR AFTER DENTAL APPOINTMENT, VAGINAL/RECTAL EXAMINATION, SURGICAL PROCEDURE, OR ANY OTHER EXPOSURE?NO LATEX RISK : HAVE YOU EVER HAD ANY DIFFICULTY BREATHING OR HIVES AFTER EATING OR HANDLING ANY FRUITS, OR VEGETABLES; SUCH KIWI, BANANAS, STONE FRUITS, OR CHESTNUTSNO LATEX RISK : DO YOU HAVE A PREVIOUS PERSONAL HISTORY OF MORE THAN NINE SURGERIES, SPINA BIFIDA, OR REPEATED CATHERIZATIONS? NO LATEX RISK : ARE YOU FREQUENTLY EXPOSED TO LATEX PRODUCTS IN YOUR OCCUPATION?NO DATE ASKED : 11/22/2019 CAFFEINE NONE. ADVANCE DIRECTIVE ADVANCE DIRECTIVE DISCUSSED WITH PATIENT:YES PT DOES NOT HAVE ANY ADVANCED DIRECTIVES AND HE DECLINES INFORMATION ON HCP AT THIS TIME. SCIENTOLOGIST [id number] HINDU MARITAL STATUS: SINGLE. ALCOHOL SCREENING POINTS: 3, INTERPRETATION: NEGATIVE. 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 SEXUAL HX HAD SEX IN THE LAST 12 MONTHS (VAGINAL, ORAL, OR ANAL)?: YES, WITH: WOMEN ONLY, USE PROTECTION?: YES, HOW OFTEN?: ALL OF THE TIME, PREVENTION STRATEGIES DISCUSSED:: CONDOMS, HAVE YOU EVER HAD AN STD?: NO. REVIEWED WITH PT 08/24/18 1334 BV10/20/18 1430 REVIEWED WITH PT. AD11/22/18 0905 REVIEWED WITH PT. ADREVIEWED WITH PATIENT 05/29/19 1350 JSREVIEWED WITH PATIENT 07/13/19 0939 NLJPRE PROCEDURE PHONE CALL COMPLETED 11/22/2019 1054 NLJ. HOSPITALIZATION/MAJOR DIAGNOSTIC PROCEDURE NONE OTHER THAN SURGERIES LISTED ABOVE REVIEW OF SYSTEMS REVIEWED BY: PROVIDER: . CONSTITUTIONAL: ANY CHANGE IN YOUR MEDICAL CONDITION? NO . CHILLS NO . FEVER NO . INFECTION: DO YOU HAVE NEW INFECTIONS? NO . DO YOU HAVE HISTORY OF MRSA? NO . MUSCULOSKELETAL: ANY NEW PATTERNS OF PAIN OR NUMBNESS? PAIN IS LESS INTENSEV . GASTROENTEROLOGY: ANY NEW CHANGE IN BOWEL CONTROL? NO . GENITOURINARY: ANY NEW CHANGE IN BLADDER CONTROL? NO . IS THERE A CHANCE YOU COULD BE ? NO . HEMATOLOGY/LYMPH: DO YOU TAKE ANY BLOOD THINNERS? (FOR EXAMPLE- COUMADIN, PLAVIX, AGGRENOX, PLATEL, PRADAXA, OR XARELTO) NO . WHEN WAS YOUR LAST DOSE? DATE: TIME: . NEUROLOGY: HAVE YOU FALLEN IN THE PAST 12 MONTHS? NO . ANY NEW EXTREMITY NUMBNESS OR WEAKNESS? NO . CARDIOLOGY: DO YOU HAVE A PACEMAKER OR DEFIBRILLATOR? NO . RESPIRATORY: HAVE YOU BEEN SICK IN THE PAST WEEK? NO . FEVER NO . FLU LIKE SYMPTOMS? NO . COUGH NO . INTEGUMENTARY: DO YOU HAVE ANY RASHES OR OPEN SORES? NO . ALLERGIC/IMMUNO: ARE YOU ALLERGIC TO IV DYE? NO . ANY NEW ALLERGIES? NO . PSYCHIATRIC: DO YOU HAVE THOUGHTS OF HURTING YOURSELF OR SOMEONE ELSE? NO . ARE YOU ABUSED, NEGLECTED, OR IN AN UNSAFE ENVIRONMENT? NO . ENDOCRINOLOGY: ARE YOU DIABETIC? NO . OTHER: DO YOU NEED ANY PRESCRIPTIONS? NO . IF YES, PLEASE LIST: ____ . ANY NEW PROBLEMS WITH YOUR MEDICATIONS? NO . WHEN DID YOU LAST EAT? 11/22/19 1800 . WHEN DID YOU LAST DRINK? 11/23/19 0815 . WHAT DID YOU LAST DRINK? WATER . NAME OF PERSON DRIVING YOU HOME? BETSEY . DO YOU HAVE ANY OTHER QUESTIONS OR CONCERNS NO . VITAL SIGNS WT 154.6 LBS, HT 64.75", BMI 25.92 INDEX, BP 131/83 MM HG, HR 99 /MIN, RR 16 /MIN, TEMP 97.3 F, OXYGEN SAT % 99%, NA INITIALS SC 11:12, REVIEWED BY: EM. ASSESSMENTS MYALGIA, OTHER SITE - M79.18 (PRIMARY) PROCEDURES PN TRIGGER POINT INJECTION NO STEROIDS DATE OF PROCEDURE : PRE PROCEDURE DIAGNOSIS 1. MYALGIA 2. PAIN AT RIGHT SHOULDER AREA POST PROCEDURE DIAGNOSIS 1. MYALGIA 2. PAIN AT RIGHT SHOULDER AREA PROCEDURE TRIGGER POINT INJECTION AT RIGHT SHOULDER AREA SURGEON DR. KEIKO RUIZ BETTING CLERKS NONE ANESTHESIA LOCAL PRE PROCEDURE NOTE 29-YEAR-OLD PATIENT WITH HISTORY OF CHRONIC PAIN AT THE RIGHT SHOULDER AREA. I EVALUATED THE PATIENT AND REVIEWED THE CHART. THERE IS EVIDENCE OF BANDS OF TISSUE WITH RESTRICTION OF MOVEMENT AND PRESENCE OF TRIGGER POINT AT THE AFFECTED AREA. I WENT OVER THE RISKS, ALTERNATIVES, AND BENEFITS ASSOCIATED WITH THIS PROCEDURE. THE PATIENT WOULD LIKE TO PROCEED AND GAVE CONSENT TO PERFORM THE PROCEDURE. THE PATIENT DENIES UNEXPLAINABLE WEIGHT LOSS, FEVER, CHILLS, OR NEW CHANGES IN URINARY OR BOWEL CONTROL. DESCRIPTION OF PROCEDURE THE PATIENT WAS BROUGHT TO THE PROCEDURE ROOM AND PLACED IN THE SITTING POSITION. THE AREA WAS CLEANED WITH ALCOHOL. THE PROCEDURE WAS DONE USING ASEPTIC STERILE TECHNIQUES. I CHECKED LATERALITY AND THE LEVEL WHERE THE PROCEDURE WAS GOING TO BE PERFORMED WITH THE PATIENT AND THE SUPPORTING STAFF AT THE MOMENT OF THE TIME OUT IN THE PROCEDURE ROOM. USING A 25-GAUGE NEEDLE, TRIGGER POINTS WERE INJECTED AT THE RIGHT SHOULDER AREA WITH A TOTAL OF 40 ML OF BUPIVACAINE 0.25%. AGREED WITH THE PATIENT THE PROCEDURE WAS DONE WITHOUT STEROIDS. THERE WAS NO EVIDENCE OF BLOOD, PARESTHESIA OR CEREBROSPINAL FLUID DURING THE PROCEDURE. THE PATIENT WAS SENT TO THE RECOVERY ROOM. THE PATIENT WAS MOVING THE EXTREMITIES AND DOING WELL. THERE WAS NO COMPLICATION DURING THE PROCEDURE. POST PROCEDURE NOTE THE PATIENT WILL BE SEEN IN A FOLLOWUP IN THE NEXT FEW WEEKS. I AM LOOKING FOR LONG-LASTING PAIN RELIEF WITH THIS INJECTION. INSTRUCTIONS WERE GIVEN, QUESTIONS WERE ANSWERED, AND THE PATIENT EXPRESSED UNDERSTANDING AND AGREED WITH THE PLAN. I, MARY COLES, DOCUMENTED THE ABOVE INFORMATION ACTING A SCRIBE FOR DR. RUIZ. I HAVE REVIEWED THE ABOVE DOCUMENT, WRITTEN BY JORGE GONZALES, AND I VERIFY THAT IT IS ACCURATE PROCEDURE CODES 13558 INJECT TRIGGER POINT, 1 OR 2 DISPOSITION & COMMUNICATION FOLLOW UP 3 WEEKS ELECTRONICALLY SIGNED BY KEIKO RUIZ MD, MD ON 12/04/2019 AT 02:27 PM EST DISCLAIMER : THIS IS A VISIT SUMMARY EXTRACTED FROM THE [employer] CHART. IT IS NOT A COPY OF THE [employer] PROGRESS NOTE. AUGUSTINE
== END ==
LOC: M PAIN 11:00
PROVIDERS: ATTEND Anesthesiology
DX: M79.18 Myalgia, other site (principal)

== ENCOUNTER → 2019-12-07 | Outpatient (CLI) | payer OTHER ==
[~2019-12-07] MED LIST changes: -BUPIVACAINE HCL 0.25% 30 ML VIAL As Ordered ONE
--- NOTE | 2019-12-09 03:03 | ECWPNPC ---
PATIENT NAME: MEDHAT BURRELL : 1990 GENDER: MALE VISIT DATE: 12/07/2019 DISCHARGE DATE: 12/07/19939 VISIT LOCKED DATE TIME: PHYSICIAN: JEFF HAYES RESOURCE: JEFF HAYES REASON FOR APPOINTMENT 1. POST TPI HISTORY OF PRESENT ILLNESS HISTORY OF PRESENT ILLNESS: PAIN THE PATIENT DESCRIBES THE PAIN... 29-YEAR-OLD MALE IN FOR POST TPI FOLLOW-UP. HE FEELS THE PROCEDURE WORKED WELL OVERALL RATING HIS PAIN PREPROCEDURE AT A 4 OUT OF 10 AND POSTPROCEDURE AT A 0 OUT OF 10. HE FEELS THE PROCEDURE CONTINUES TO HELP HIM TODAY RATING HIS PAIN AT A 1 OUT OF 10 AND DESCRIBING IT TENDER AND SORE. FALL RISK SCREENING: SCREENING :NO FALLS REPORTED IN THE LAST YEAR CURRENT MEDICATIONS TAKING MELATONIN 3 MG TABLET 1 TABLET AT BEDTIME NEEDED WITH FOOD ORALLY ONCE A DAY, NOTES: NONE LATELY TAKING DULOXETINE HCL 60 MG CAPSULE DELAYED RELEASE PARTICLES 1 CAPSULE ORALLY DAILY, NOTES: 11/23/19814 TAKING DICYCLOMINE HCL 20 MG TABLET 1 TABLET ORALLY THREE TIMES A DAY, NOTES: 11/23/19 0815 NOT-TAKING TYLENOL 325 MG TABLET 2TABLET NEEDED ORALLY EVERY 6 HRS NOT-TAKING TRAMADOL HCL 50 MG TABLET 1 TABLET NEEDED ORALLY Q8H PRN MDD3 NOT-TAKING TIZANIDINE HCL 2 MG TABLET 1 TABLET NEEDED ORALLY THREE TIMES A DAY MDD3 MEDICATION LIST REVIEWED AND RECONCILED WITH THE PATIENT PAST MEDICAL HISTORY KIDNEY STONES HYDRONEPHROSIS ANXIETY/DEPRESSION PEPTIC REFLUX DISEASE IBS CHRONIC RIGHT SHOULDER PAIN ALLERGIES N.K.D.A. SURGICAL HISTORY RIGHT SHOULDER ARTHROPLASTY X2 RIGHT SHOULDER SURGERY 2012 RIGHT SHOULDER REPLACEMENT 08/2019 FAMILY HISTORY FATHER: ALIVE MOTHER: ALIVE SIBLINGS: ALIVE PATERNAL GRAND MOTHER: DIAGNOSED WITH OTHER MALIGNANT NEOPLASM OF UNSPECIFIED SITE 1 BROTHER(S) , 1 SISTER(S) - HEALTHY. 3 SON(S) - HEALTHY. DENIES FAMILY HISTORY OF UROLOGICAL DISEASES. SOCIAL HISTORY GENERAL: TOBACCO USE ARE YOU A:FORMER SMOKER HOW LONG HAS IT BEEN SINCE YOU LAST SMOKED?5-10 YEARS OTHERS AT HOME: OTHER RELATIVES. EDUCATION COLLEGE DEGREE. DIET: REGULAR. LANGUAGE TELUGU. DOMESTIC VIOLENCE DO YOU FEEL SAFE IN YOUR ENVIRONMENT?YES RECREATIONAL DRUG USE DRUG USE?NO EXERCISE: WALKS. 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 NEEDED?NO PAIN CLINIC PFS, CLERGY, PUBLIC HEALTH REFERRALS WAS THE PROVIDER NOTIFIED OF ANY PERTINENT INFO?YES N/A HAS THE PATIENT BEEN EDUCATED REGARDING HIS/HER PLAN OF CARE?YES HAS THE PATIENT BEEN EDUCATED REGARDING PAIN, THE RISK FOR PAIN, THE IMPORTANCE OF EFFECTIVE PAIN MANAGEMENT, AND THE PAIN ASSESSMENT PROCESS?YES LATEX QUESTIONNAIRE LATEX ALLERGY : HAVE YOU EVER DEVELOPED ANY TYPE OF REACTION AFTER HANDLING LATEX PRODUCTS SUCH RUBBER GLOVES, CONDOMS, DIAPHRAGMS, BALLOONS, SOCKS, OR UNDERWEAR?NO LATEX ALLERGY : HAVE YOU EVER DEVELOPED ANY TYPE OF REACTION DURING OR AFTER DENTAL APPOINTMENT, VAGINAL/RECTAL EXAMINATION, SURGICAL PROCEDURE, OR ANY OTHER EXPOSURE?NO DATE ASKED : 11/22/2019 LATEX RISK : HAVE YOU EVER HAD ANY DIFFICULTY BREATHING OR HIVES AFTER EATING OR HANDLING ANY FRUITS, OR VEGETABLES; SUCH KIWI, BANANAS, STONE FRUITS, OR CHESTNUTSNO LATEX RISK : DO YOU HAVE A PREVIOUS PERSONAL HISTORY OF MORE THAN NINE SURGERIES, SPINA BIFIDA, OR REPEATED CATHERIZATIONS? NO LATEX RISK : ARE YOU FREQUENTLY EXPOSED TO LATEX PRODUCTS IN YOUR OCCUPATION?NO CAFFEINE NONE. ADVANCE DIRECTIVE ADVANCE DIRECTIVE DISCUSSED WITH PATIENT:YES PT DOES NOT HAVE ANY ADVANCED DIRECTIVES AND HE DECLINES INFORMATION ON HCP AT THIS TIME. BAPTISM [id number] RELIGIOUS MARITAL STATUS: SINGLE. ALCOHOL SCREENING POINTS: 3, INTERPRETATION: NEGATIVE. 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 SEXUAL HX HAD SEX IN THE LAST 12 MONTHS (VAGINAL, ORAL, OR ANAL)?: YES, WITH: WOMEN ONLY, USE PROTECTION?: YES, HOW OFTEN?: ALL OF THE TIME, PREVENTION STRATEGIES DISCUSSED:: CONDOMS, HAVE YOU EVER HAD AN STD?: NO. REVIEWED WITH PT 08/24/18 1334 BV10/20/18 1430 REVIEWED WITH PT. AD11/22/18 0905 REVIEWED WITH PT. ADRIENWED WITH PATIENT 05/29/19 1350 JSREVIEWED WITH PATIENT 07/13/19 0939 NLJREVIEWED WITH PATIENT 12/07/2019 LASPRE PROCEDURE PHONE CALL COMPLETED 11/22/2019 1054 NLJ. 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 CONSTITUTIONAL: ANY CHANGE IN YOUR MEDICAL CONDITION? NO . CHILLS NO . FEVER NO . INFECTION: DO YOU HAVE NEW INFECTIONS? NO . DO YOU HAVE HISTORY OF MRSA? NO . MUSCULOSKELETAL: ANY NEW PATTERNS OF PAIN OR NUMBNESS? NO . GASTROENTEROLOGY: ANY NEW CHANGE IN BOWEL CONTROL? NO . GENITOURINARY: ANY NEW CHANGE IN BLADDER CONTROL? NO . IS THERE A CHANCE YOU COULD BE ? NO . HEMATOLOGY/LYMPH: DO YOU TAKE ANY BLOOD THINNERS? (FOR EXAMPLE- COUMADIN, PLAVIX, AGGRENOX, PLATEL, PRADAXA, OR XARELTO) NO . WHEN WAS YOUR LAST DOSE? DATE: TIME: . NEUROLOGY: HAVE YOU FALLEN IN THE PAST 12 MONTHS? NO . ANY NEW EXTREMITY NUMBNESS OR WEAKNESS? NO . CARDIOLOGY: DO YOU HAVE A PACEMAKER OR DEFIBRILLATOR? NO . RESPIRATORY: HAVE YOU BEEN SICK IN THE PAST WEEK? NO . FEVER NO . FLU LIKE SYMPTOMS? NO . COUGH NO . INTEGUMENTARY: DO YOU HAVE ANY RASHES OR OPEN SORES? NO . ALLERGIC/IMMUNO: ARE YOU ALLERGIC TO IV DYE? NO . ANY NEW ALLERGIES? NO . PSYCHIATRIC: DO YOU HAVE THOUGHTS OF HURTING YOURSELF OR SOMEONE ELSE? NO . ARE YOU ABUSED, NEGLECTED, OR IN AN UNSAFE ENVIRONMENT? NO . ENDOCRINOLOGY: ARE YOU DIABETIC? NO . OTHER: DO YOU NEED ANY PRESCRIPTIONS? NO . IF YES, PLEASE LIST: ____ . ANY NEW PROBLEMS WITH YOUR MEDICATIONS? NO . WHEN DID YOU LAST EAT? ____ . WHEN DID YOU LAST DRINK? ____ . WHAT DID YOU LAST DRINK? ____ . NAME OF PERSON DRIVING YOU HOME? ____ . DO YOU HAVE ANY OTHER QUESTIONS OR CONCERNS NO . VITAL SIGNS WT 158.2 LBS, HT 64.75", BMI 26.53 INDEX, BP 122/79 MM HG, HR 78 /MIN, RR 16 /MIN, TEMP 98.2 F, OXYGEN SAT % 98%, SAFE IN ENV? (Y/N) YES, REVIEWED BY: JAMES. EXAMINATION GENERAL EXAMINATION: GENERALNO ACUTE DISTRESS, WELL NOURISHED AND HYDRATED. PSYCHAPPROPRIATE MOOD AND AFFECT . LUNGS:CLEAR TO AUSCULTATION BILATERALLY, NO WHEEZES, RHONCHI, RALES. HEART:NO MURMURS, REGULAR RATE AND RHYTHM. ASSESSMENTS MYALGIA, OTHER SITE - M79.18 (PRIMARY) TREATMENT MYALGIA, OTHER SITE CLINICAL NOTES: 29-YEAR-OLD MALE IN FOR POST TPI FOLLOW-UP. GIVEN PRESENTING SYMPTOMS AND RESULTS OF PHYSICAL EXAMINATION RECOMMENDED FOLLOW-UP IN 2 MONTHS. PATIENT HAS EXPRESSED UNDERSTANDING OF AND WAS IN AGREEMENT WITH TREATMENT PLAN. GIVEN TIME TO ASK QUESTIONS AND EXPRESS CONCERNS. PROCEDURE CODES FA211 ESTABILISHED PATIENT [facility] CHARGE DISPOSITION & COMMUNICATION FOLLOW UP 2 MONTHS (REASON: MYALIGA ) ELECTRONICALLY SIGNED BY ANOOP GUADALUPE ON 12/08/2019 AT 08:41 AM EST DISCLAIMER : THIS IS A VISIT SUMMARY EXTRACTED FROM THE [employer] CHART. IT IS NOT A COPY OF THE [employer] PROGRESS NOTE. AUGUSTINE
== END ==
LOC: M PAIN 09:00
PROVIDERS: ATTEND Family Medicine
DX: M79.18 Myalgia, other site (principal); Z86.59 Personal history of other mental and behavioral disorders; Z96.611 Presence of right artificial shoulder joint; Z87.891 Personal history of nicotine dependence; Z79.899 Other long term (current) drug therapy

== ENCOUNTER 2019-12-16 12:14 | Emergency (ER) | payer OTHER ==
[~2019-12-16] VITALS: Ht 170.2 cm; Wt 71.1 kg
[2019-12-16] MEDS ORDERED: DICY20TA11 (12:20)
[2019-12-16 13:08] LABS: BASO % 0.5 % (0.0-1.0); EOS # 0.2 10^3/uL (0.0-0.5); EOS % 4.2 % (0.0-3.0); HEMATOCRIT 43.3 % (42.0-52.0); HEMOGLOBIN 14.9 g/dl (13.5-17.5); LYMPH # 1.9 10^3/uL (1.5-5.0); LYMPH % 44.8 % (24.0-44.0); MEAN CORPUSCULAR HEMOGLOBIN 29.9 pg (27.0-33.0); MEAN CORPUSCULAR HGB CONC 34.4 g/dl (32.0-36.5); MEAN CORPUSCULAR VOLUME 86.9 fl (80.0-96.0); MONO # 0.4 10^3/uL (0.0-0.8); MONO % 9.3 % (0.0-5.0); NEUTROPHILS # 1.8 10^3/uL (1.5-8.5); PLATELET COUNT, AUTOMATED 307 10^3/uL (150-450); RED BLOOD COUNT 4.98 10^6/uL (4.30-6.10); WHITE BLOOD COUNT 4.3 10^3/uL (4.0-10.0)
[2019-12-16 13:33] LABS: ALBUMIN 4.3 GM/DL (3.2-5.2); ALT/SGPT 54 U/L (12-78); BILIRUBIN,DIRECT < 0.1 MG/DL (0.0-0.2); BILIRUBIN,TOTAL 0.2 MG/DL (0.2-1.0); BLOOD UREA NITROGEN 7 MG/DL (7-18); CALCIUM LEVEL 9.3 MG/DL (8.5-10.1); CARBON DIOXIDE LEVEL 30 MEQ/L (21-32); CHLORIDE LEVEL 105 MEQ/L (98-107); CREATININE FOR GFR 0.88 MG/DL (0.70-1.30); GLOMERULAR FILTRATION RATE > 60.0 (>60); GLUCOSE, FASTING 84 MG/DL (70-100); LIPASE 135 U/L (73-393); POTASSIUM SERUM 4.6 MEQ/L (3.5-5.1); SODIUM LEVEL 140 MEQ/L (136-145); TOTAL PROTEIN 7.7 GM/DL (6.4-8.2)
[2019-12-16] MEDS ORDERED: NS 1,000 ML IV SCH (13:54)
[2019-12-16] MEDS ORDERED: KETOROLAC 30 MG/ML VIAL (J1885) IV ONE (14:00)
[2019-12-16] MEDS ORDERED: ONDANSETRON 4MG/2ML VIAL (J2405) IV ONE (14:00)
[2019-12-16] MEDS ORDERED: NORC1TAB7 PO (14:56)
[2019-12-16] MEDS ORDERED: ZOFR4TAB16 PO (14:56)
[2019-12-16 15:49] VITALS: BP 126/76
--- NOTE | 2019-12-16 19:21 | ECGEPIP ---
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
--- NOTE | 2019-12-18 07:32 | REP ---
Clinical: Right flank pain/renal colic. Technique: Axial noncontrast images from the lung bases to the pubic symphysis with coronal and sagittal re-formations. Comparison: 08/04/2019. Findings: Right kidney demonstrates very mild hydronephrosis with a 2 mm calculus in the proximal right ureter (image 73). Few nonobstructing left renal calculi are identified measuring up to 2.5 mm. Bladder is unremarkable. Liver, spleen, pancreas, gallbladder, and bilateral adrenal glands are normal for noncontrast evaluation. The enteric system is without obstruction or acute inflammatory process. Mild mucosal thickening of the ascending and transverse colon requires correlation to exclude a mild colitis. Normal terminal ileum and appendix identified in the right lower quadrant. Pelvis demonstrates normal bladder and age appropriate prostate/seminal vesicles. No pelvic fluid or ascites. No free air. No adenopathy. Abdominal aorta without aneurysm. Musculoskeletal structures are intact. Impression: 1. Very mild subtle right hydronephrosis and possible 2 mm obstructing proximal right ureteral stone. 2. Few nonobstructing left renal calculi up to 2.5 mm. 3. Cannot exclude a mild colitis involving the ascending through the distal transverse colon. Electronically Signed by Sergey Olivo MD 12/16/2019 02:33 P
== END 2019-12-16 15:53 | disposition home or self-care (01) ==
LOC: M ED 12:14
DX: N20.1 Calculus of ureter (principal); N20.0 Calculus of kidney; Z79.899 Other long term (current) drug therapy
CPT/HCPCS: 74176; 80048; 80076; 81001; 83690; 85025; 93005; 93041; 96361; 96374; 96375; 99284; J1885; J2405

== ENCOUNTER 2020-01-07 13:01 | Emergency (ER) | payer OTHER ==
[~2020-01-07] VITALS: Ht 170.2 cm; Wt 70.5 kg
[~2020-01-07 13:01] MED LIST changes: +DICY20TA11; +NORC1TAB7 PO
[2020-01-07 13:35] LABS: BASO % 0.4 % (0.0-1.0); EOS # 0.1 10^3/uL (0.0-0.5); EOS % 1.6 % (0.0-3.0); HEMATOCRIT 44.3 % (42.0-52.0); HEMOGLOBIN 15.2 g/dl (13.5-17.5); LYMPH # 1.8 10^3/uL (1.5-5.0); LYMPH % 35.9 % (24.0-44.0); MEAN CORPUSCULAR HEMOGLOBIN 29.5 pg (27.0-33.0); MEAN CORPUSCULAR HGB CONC 34.3 g/dl (32.0-36.5); MONO # 0.4 10^3/uL (0.0-0.8); MONO % 8.6 % (0.0-5.0); NEUTROPHILS # 2.7 10^3/uL (1.5-8.5); NEUTROPHILS % 53.3 % (36.0-66.0); PLATELET COUNT, AUTOMATED 326 10^3/uL (150-450); RED BLOOD COUNT 5.15 10^6/uL (4.30-6.10); WHITE BLOOD COUNT 5.1 10^3/uL (4.0-10.0)
[2020-01-07 14:00] LABS: ALBUMIN 4.3 GM/DL (3.2-5.2); ALT/SGPT 39 U/L (12-78); BILIRUBIN,DIRECT < 0.1 MG/DL (0.0-0.2); BILIRUBIN,TOTAL 0.3 MG/DL (0.2-1.0); LIPASE 154 U/L (73-393); TOTAL PROTEIN 7.4 GM/DL (6.4-8.2)
[2020-01-07] MEDS ORDERED: ONDANSETRON 4MG/2ML VIAL (J2405) IV ONE (14:00)
[2020-01-07] MEDS ORDERED: KETOROLAC 30 MG/ML VIAL (J1885) IV ONE (14:00)
[2020-01-07] MEDS ORDERED: NS 1,000 ML IV ONE (14:00)
--- NOTE | 2020-01-07 15:19 | REP ---
CT ABDOMEN/PELVIS WITHOUT CONTRAST: CT abdomen/pelvis performed without oral or IV contrast. Sagittal and coronal reconstruction images are performed. COMPARISON: 12/16/2019 Visualized lung bases are clear. Liver, spleen, adrenals, and pancreas are grossly unremarkable. Right kidney is grossly unremarkable. There is an intrarenal calculus in the lower pole of the left kidney 4 mm in diameter. There is a 2 mm calculus in the proximal left ureter. This is near the ureteropelvic junction. There is mild to moderate left hydronephrosis. No bladder calculus is seen. There is no abdominal aortic aneurysm. There is no adenopathy. There is no free air or free fluid. There is no bowel wall thickening. The appendix is normal. No pelvic mass is seen. IMPRESSION: There is a 2 mm calculus in the proximal left ureter near the ureteropelvic junction. This causes mild to moderate left hydronephrosis. There is also an intrarenal calculus in the lower pole of the left kidney measuring 4 mm in diameter. Electronically Signed by Roberto Carlos Arce MD 01/07/2020 06:44 P
[2020-01-07] MEDS ORDERED: MORPHINE 4 MG/ML 1ML VIAL/SYRINGE (J2270) IV ONE (15:30)
[2020-01-07] MEDS ORDERED: BACT800T5 PO (15:47)
[2020-01-07] MEDS ORDERED: FLOM0.4C39 PO (15:47)
[2020-01-07] MEDS ORDERED: PERC5TAB12 PO (15:47)
[2020-01-07 15:58] VITALS: BP 132/90
== END 2020-01-07 16:00 | disposition home or self-care (01) ==
LOC: M ED 13:01
DX: N13.2 Hydronephrosis with renal and ureteral calculous obstruction (principal); N39.0 Urinary tract infection, site not specified; K58.9 Irritable bowel syndrome, unspecified; F32.9 Major depressive disorder, single episode, unspecified; F41.9 Anxiety disorder, unspecified
CPT/HCPCS: 74176; 80047; 80076; 81001; 83690; 85025; 96361; 96374; 96375; 99284; J1885; J2270; J2405

== ENCOUNTER → 2020-01-22 | Outpatient (REF) | payer OTHER ==
[~2020-01-22] MED LIST changes: +BACT800T5 PO; +FLOM0.4C39 PO
[2020-01-22 17:41] LABS: APPEARANCE, URINE CLEAR (CLEAR); BACTERIA, URINE AUTO NEGATIVE (NEGATIVE); BILIRUBIN, URINE AUTO NEGATIVE (NEGATIVE); BLOOD, URINE BLOOD NEGATIVE (NEGATIVE); COLOR, URINE YELLOW (YELLOW); GLUCOSE, URINE (UA) AUTO NEGATIVE (NEGATIVE); KETONE, URINE AUTO NEGATIVE (NEGATIVE); LEUKOCYTE ESTERASE, URINE AUTO NEGATIVE (NEGATIVE); NITRITE, URINE AUTO NEGATIVE (NEGATIVE); PROTEIN, URINE AUTO NEGATIVE (NEGATIVE); RBC, URINE AUTO 1 /HPF (0-3); SPECIFIC GRAVITY URINE AUTO 1.005 (1.002-1.035); SQUAMOUS EPITHELIAL CELL UR AU 0 /HPF (0-6); UROBILINOGEN, URINE AUTO 0.2 mg/dL (0.0-2.0); WBC, URINE AUTO 2 /HPF (0-3)
== END ==
LOC: M SMT 17:06
PROVIDERS: ATTEND Nurse Practitioner Family
DX: N20.0 Calculus of kidney (principal)